=== PATIENT | female | born 2005 | race Caucasian/White ===

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

== ENCOUNTER 2024-01-09 20:23 | Outpatient (CLI) | payer MEDICAID, SELFPAY ==
[2024-01-09 20:30] VITALS: BMI 26.2
[2024-01-09 20:41] VITALS: BP 116/65; PULSE 79
[2024-01-09 20:42] VITALS: TEMP 35.5
[2024-01-09 20:57] VITALS: BP 104/56; PULSE 66
[2024-01-09 21:12] VITALS: BP 105/59; PULSE 72
[2024-01-09 21:31] VITALS: BP 105/59; PULSE 72; RESP 18
== END 2024-01-09 21:51 | disposition home or self-care (01) ==
LOC: OPOB 20:27 → OBGYN 20:28
PROVIDERS: Visit Provider Family Medicine
DX: O26.899 Other specified pregnancy related conditions, unspecified trimester (principal); Z3A.00 Weeks of gestation of pregnancy not specified; R10.9 Unspecified abdominal pain
CPT/HCPCS: 59000; 59025; 99211

== ENCOUNTER 2024-01-21 01:42 | Outpatient (CLI) | payer MEDICAID, SELFPAY ==
[2024-01-21 01:56] VITALS: BP 107/59; PULSE 80
[2024-01-21 01:58] VITALS: TEMP 35.8
[2024-01-21 02:02] VITALS: BMI 26.9
[2024-01-21 02:13] VITALS: BP 102/57; PULSE 72
[2024-01-21 02:27] VITALS: BP 99/54; PULSE 88
[2024-01-21 02:31] LABS: Actim Prom Negative
[2024-01-21 02:42] VITALS: BP 103/58; PULSE 77
== END 2024-01-21 02:58 | disposition home or self-care (01) ==
LOC: OPOB 01:43 → OBGYN 01:45
PROVIDERS: Visit Provider Family Medicine
DX: O26.899 Other specified pregnancy related conditions, unspecified trimester (principal); Z3A.00 Weeks of gestation of pregnancy not specified; N89.8 Other specified noninflammatory disorders of vagina
CPT/HCPCS: 84112

== ENCOUNTER 2024-02-18 14:12 | Inpatient (IN) | payer MEDICAID, SELFPAY ==
[2024-02-18] VITALS (75 sets, daily range): BP systolic 91–128; BP diastolic 50–77; PULSE 49–113; RESP 15–18; TEMP 36.8; O2SAT 89–99; BMI 28.1
[2024-02-18 12:40] LABS: Basophils # 0.1 10^3/uL (0.0-0.1); Basophils % 0.5 %; Eosinophils % 0.2 %; Hematocrit 32.2 % (36-47); Lymphocytes # 1.7 10^3/uL (1.5-6.5); Lymphocytes % 13.3 %; Mean Corpuscular HGB Conc 30.7 g/dL (30-55); Mean Corpuscular Hemoglobin 25.4 pg (27-33); Mean Corpuscular Volume 82.6 fl (85-98); Mean Platelet Volume 9.7 fL (7.4-10.4); Monocytes # 0.9 10^3/uL (0.2-0.9); Monocytes % 7.1 %; Neutrophils # 10.12 10^3/uL (1.8-8.0); Neutrophils % 77.5 %; Nucleated Red Blood Cells % 0 %; Platelet Count 325 10^3/cmm (157-399); Red Cell Distribution Width 14.4 % (12.1-15.1); White Blood Count 13.04 10^3/uL (4.5-13.0)
[2024-02-18] MEDS: fentaNYL 50 mcg/mL INJ 2mL IVP ×2 (14:49→16:43)
[2024-02-18] MEDS: lactated ringers 1,000 ML 999 ML IV (16:51)
[2024-02-18] MEDS: ROPivacaine syringe 100 MG/50 ML SYRINGE 10 MG EPIDURAL ×2 (18:10→22:21)
[2024-02-18] MEDS: dextrose 5%-lactated ringers 1,000 ML 125 ML IV (18:12)
--- NOTE | 2024-02-18 18:19 | P.ANESASSM_ITS ---
Pre-Anesthetic Assessment Height/Weight: Height 1.63 m Weight 74.389 kg Pulse Resp BP Pulse Ox O2 Del Method 81 17 106/58 96 Room Air 02/18/24 18:16 02/18/24 16:43 02/18/24 18:16 02/18/24 18:12 02/18/24 12:10 Epidural Familial anesthetic complications: None Was Beta Andreina taken within 24 hours: N/A Was Clonidine taken within 24 hours: N/A Last intake: > 8hrs Social No alcohol and No tobacco Exam alert, oriented x 3, clear to auscultation bilaterally and regular rate & rhythm Anesthetic Plan ASA status: 2 Anesthesia: Regional (specify below) Risk of > 500 ml blood loss (7ml/kg in children): Yes, adequate IV access and fluids planned Medications/Allergies Home Medications Medication Instructions Recorded Confirmed Last Taken Type 1 tab PO DAILY 11/28/23 02/18/24 01/20/24 History Allergies Allergy/AdvReac Type Severity Reaction Status Date / Time No Known Allergies Allergy Verified 02/18/24 11:39 Current Medications Generic Name Dose Route Start Last Admin Trade Name Freq PRN Reason Stop Dose Admin Fentanyl 25 - 100 mcg 02/18/24 12:08 02/18/24 16:43 Fentanyl 50 Mcg/Ml Inj 2ml IVP 50 mcg Q1H PRN Administration SEVERE PAIN Dextrose/Lactated Ringer's 1,000 mls @ 125 mls/hr 02/18/24 12:15 02/18/24 18:12 Dextrose 5%-Lactated Ringers IV 125 mls/hr .Q8H CURT Administration Lactated Ringer's 1,000 mls @ 999 mls/hr 02/18/24 16:46 02/18/24 16:51 Lactated Ringers IV 999 mls/hr .Q1H1M PRN Administration See label comments Ropivacaine 100 mg in 50 mls @ 10 mls/hr 02/18/24 17:00 02/18/24 18:10 Naropin Syringe EPIDURAL 10 mls/hr .Q5H CURT Administration PFSH Anesthesia Social History (Updated 03/09/21 @ 13:23 by Cha Gonzales) Smoking and tobacco/nicotine status: never used tobacco/nicotine Second hand smoke exposure: No Alcohol intake: never Substance/Drug Use: never Female Reproductive History : 1 Data Anesthesia 02/18/24 12:15 Short CBC 02/18/24 Range/Units 12:15 WBC 13.04 H (4.5-13.0) 10^3/uL Hgb 9.90 L (12.4-14.8) g/dL Hct 32.2 L (36-47) % MCV 82.6 L (85-98) fl Plt Count 325 (157-399) 10^3/cmm Neut % (Auto) 77.5 % Neut # (Auto) 10.12 H (1.8-8.0) 10^3/uL Blood Bank 02/18/24 12:15 Blood Type O Positive Rho(D) Type Rh positive Antibody Screen Negative Cardiac Studies: 2 No Data to Display
--- NOTE | 2024-02-18 18:20 | ANES.PROC ---
Anesthesia Procedures Procedure/Date: 02/18/24 Epidural: Time Out Performed: Yes Consents Signed: Procedure Consent Consent: requested by attending/covering physician, from patient, from other, risks and benefits reviewed and patient agrees to proceed Lumbar Level: L3-L4 Epidural position: sitting Epidural procedure: sterile prep of area, 1% lidocaine to numb the area, 18 g needle, negative for paresthesia passed, neg for paresthesia, test dose given, 1.5% xylocaine 1:200k epi (5), 0.2% Ropivacaine bolus ml (5), placed PCEA, no systemic response, sterile dressing applied, L.U.D. no apparent complications and 0.2% Ropiavacaine @ mls/hr (10) Additional Comments: ALANNA at 3 cm, threaded to 10 cm. Patient reported decreased pain of contraction from 10/10 to not bad at all
[2024-02-18] MEDS: lanolin oint 7 gm 1 APPLIC TOPICAL (22:23)
[2024-02-19] VITALS (24 sets, daily range): BP systolic 93–189; BP diastolic 51–133; PULSE 58–129; RESP 16–18; TEMP 36.7–37.7; O2SAT 96–98
[2024-02-19] MEDS: acetaminophen 325 mg Tablet 650 MG PO (01:02)
[2024-02-19] MEDS: oxytocin 30 UNIT/500 ML BAG 600 UNIT IV (02:05)
[2024-02-19] MEDS: miSOPROStol 200 mcg Tablet 800 MCG PR (02:10)
--- NOTE | 2024-02-19 02:40 | PM.OPHPUD ---
Labor & Delivery H&P Update Date of Procedure: February 18, 2024 Date H&P Performed: 02/13/24 Admission Diagnosis: IUP at 39 weeks 6 days gestation in active labor Planned procedure: Expectant management of labor and delivery
--- NOTE | 2024-02-19 02:41 | P.PCNOB_ITS ---
Delivery Note: Date of delivery: February 19, 2024 Estimated blood loss (mL): 350 Pre-Delivery Course: Mother had routine care at [facility]. There were no complications during the . Blood type was O+ antibody negative, hepatitis B nonreactive hepatitis C nonreactive, HIV nonreactive, rubella immune, GC chlamydia negative, RPR nonreactive, UDS negative, Q low risk, she passed her glucose tolerance test, ultrasound was positive for fluid cysts in the kidneys. She was referred to [facility] and by that time the fluid had resolved so she was cleared by [facility]. Delivery: This is a 18-year-old G1, P0 at 39 weeks 6 days gestation who presented to labor and delivery in active labor. She underwent artificial rupture of membranes with meconium stained fluid. She received an epidural for pain management. Her labor progressed well on its own and she did not require any augmentation. She pushed for about 45 minutes and had a normal spontaneous vaginal delivery of a viable female weight 3900 g, Apgars 7 and 8 over an intact perineum. The infant was suctioned at delivery and placed on the mother's chest. The cord was clamped and cut. The placenta was delivered grossly intact and normal to inspection. Despite Pitocin and fundal massage mother had some brisk vaginal bleeding. 800 mcg of Cytotec was placed rectally. Mother had a second-degree left vaginal laceration that was sutured using 3-0 chromic. Mother and were doing well after delivery. A&P Assessment and plan (1) Normal spontaneous vaginal delivery: Coding Level of Care Code Acute Code for Chg Fwd Diagnoses Normal spontaneous vaginal delivery O80
[2024-02-19] MEDS: benzocaine-menthol 78 gm Canister 1 SPRAY TOPICAL (04:51)
[2024-02-19] MEDS: ibuprofen 800 mg tablet PO ×3 (10:08→21:04)
[2024-02-19] MEDS: docusate sodium 100 mg Capsule PO ×2 (10:09→21:04)
[2024-02-19] MEDS: PRENATAL VIT NO.130/IRON/FOLIC 1 EACH TABLET PO (10:09)
[2024-02-19 14:24] LABS: Hematocrit 24.2 % (36-47); Mean Platelet Volume 9.6 fL (7.4-10.4); Platelet Count 335 10^3/cmm (157-399); Red Blood Count 2.88 10^6/uL (3.85-5.65); Red Cell Distribution Width 14.6 % (12.1-15.1); White Blood Count 20.93 10^3/uL (4.5-13.0)
[2024-02-20 06:03] VITALS: BP 108/67; PULSE 69; RESP 16; TEMP 36.8; O2SAT 98
--- NOTE | 2024-02-20 08:00 | ANE.PACU2 ---
Inpatient post-anesthesia follow up: Airway intact: Yes Vital signs: Temperature 98.0 F Pulse Rate 76 Respiratory Rate 16 Blood Pressure 121/67 Pulse Oximetry 98 Oxygen Delivery Me thod Room Air Oxygen Flow Rate Fraction of Inspir ed Oxygen Hydration adequate: Yes Nausea and vomiting: No Pain level: 1 Mental status: Baseline Epidural Start/End: Epidural Start Date: 02/18/24 Epidural Start Time: 17:57 Epidural End Date: 02/19/24 Epidural End Time: 05:27
[2024-02-20] MEDS: docusate sodium 100 mg Capsule PO (09:46)
[2024-02-20] MEDS: ibuprofen 800 mg tablet PO (09:46)
[2024-02-20] MEDS: PRENATAL VIT NO.130/IRON/FOLIC 1 EACH TABLET PO (09:46)
[2024-02-20 09:50] VITALS: BP 107/64; PULSE 89; RESP 16; TEMP 36.4
--- NOTE | 2024-02-20 11:35 | PM.DCS ---
Discharge Providers Date of Admission: 02/18/24 14:12 Date of Discharge: February 20, 2024 Attending Provider at Admission: Elise Barton MD Attending Provider at Discharge: Elise Barton MD Diagnoses at Discharge Discharge Diagnosis (1) Normal spontaneous vaginal delivery: Status: Acute Reason for Visit Reason for Visit: CTX Hospital Course Hospital Course This is a 18-year-old G1 now P1 who had a 40-week gestation female infant via normal spontaneous vaginal delivery. Mother and have done well after delivery. She is ambulating, tolerating a regular diet, has good pain control and is comfortable with discharge home Physical Exam Narrative: Alert and oriented, sitting up in bed, heart regular rate and rhythm, lungs clear to auscultation bilaterally, abdomen is soft and nontender, fundus is firm, extremities have no calf tenderness and no edema Urinary Catheter Management: Decker: Cath Placed During This Visit: yes, but has since been removed by the nurse Reason for Continuing Indwelling Catheter: Decision to DC Catheter Urinary Catheter Date of Insertion: 02/18/24 Urinary Catheter Time of Insertion: 18:45 Date Urinary Catheter Removed: 02/19/24 Time Urinary Catheter Discontinued: 01:30 Discharge Data Studies Completed and Pending Laboratory Results WBC 20.93 10^3/uL (4.5-13.0) H 02/19/24 14:15 RBC 2.88 10^6/uL (3.85-5.65) L 02/19/24 14:15 Hgb 7.50 g/dL (12.4-14.8) L 02/19/24 14:15 Hct 24.2 % (36-47) L 02/19/24 14:15 MCV 84.0 fl (85-98) L 02/19/24 14:15 MCH 26.0 pg (27-33) L 02/19/24 14:15 MCHC 31.0 g/dL (30-55) 02/19/24 14:15 RDW 14.6 % (12.1-15.1) 02/19/24 14:15 Plt Count 335 10^3/cmm (157-399) 02/19/24 14:15 MPV 9.6 fL (7.4-10.4) 02/19/24 14:15 Neut % (Auto) 77.5 % 02/18/24 12:15 Lymph % (Auto) 13.3 % 02/18/24 12:15 [place] % (Auto) 7.1 % 02/18/24 12:15 Eos % (Auto) 0.2 % 02/18/24 12:15 Baso % (Auto) 0.5 % 02/18/24 12:15 Neut # (Auto) 10.12 10^3/uL (1.8-8.0) H 02/18/24 12:15 Lymph # (Auto) 1.7 10^3/uL (1.5-6.5) 02/18/24 12:15 [place] # (Auto) 0.9 10^3/uL (0.2-0.9) 02/18/24 12:15 Eos # (Auto) 0.0 10^3/uL (0.0-0.8) 02/18/24 12:15 Baso # (Auto) 0.1 10^3/uL (0.0-0.1) 02/18/24 12:15 Nucleated RBC % (auto) 0 % 02/18/24 12:15 Nucleated RBCs # 0.0 /100WBC 02/18/24 12:15 Blood Type O Positive 02/18/24 12:15 Rho(D) Type Rh positive 02/18/24 12:15 Antibody Screen Negative 02/18/24 12:15 Vitals Last Vital Signs Temp 97.6 F 02/20/24 09:50 Pulse 89 02/20/24 09:50 Resp 16 02/20/24 09:50 BP 107/64 02/20/24 09:50 Pulse Ox 98 02/20/24 06:03 O2 Del Method Room Air 02/20/24 09:50 Discharge Plan Discharge Patient Disposition: Home Condition: Stable Prescriptions: New ferrous sulfate 324 mg (65 mg iron) tablet,delayed release (DR/EC) 324 mg PO DAILY Qty: 90 0RF Continued 1 tab PO DAILY Discharge Orders: Discharge Order (Routine); Ordered 02/20/24 Ordered By: Elise Barton Referrals: Elise Barton MD [Physician] - 1 month Discharge Diet: Usual diet Discharge Activity: Limit activity as instructed Patient Instructions: Depression (DC), Opioid Safety (DC), Preeclampsia and Eclampsia After Delivery (GEN), Hemorrhage (DC), OB Discharge Report, OB Food/Drug Interaction Guide, OB Care at Home, Opioid Safety, OB Vaginal Deliveries, Abnormal Bleeding Activity Restrictions/Additional Instructions: Nothing per vagina for 6 weeks Discharge Attestations Time Spent in Discharge Care*: less than 30 min Quality Metrics Clinical Quality Measures [ No reported AMI, CVA or VTE this stay] Coding Level of Care Code Acute Code for Chg Fwd Diagnoses Normal spontaneous vaginal delivery O80
[2024-02-20 12:15] VITALS: BP 121/67; PULSE 76; RESP 16; TEMP 36.7
== END 2024-02-20 12:25 | disposition home or self-care (01) | DRG 807 ==
LOC: OPOB 14:12 → OBGYN 14:12
PROVIDERS: Admitting Provider Family Medicine; Visit Provider Family Medicine
DX: O77.0 Labor and delivery complicated by meconium in amniotic fluid (principal); Z37.0 Single live birth; O70.1 Second degree perineal laceration during delivery; Z3A.39 39 weeks gestation of pregnancy
CPT/HCPCS: 36415; 51702; 59025; 59409; 85025; 85027; 86850; 86900; 99211; J2590; J2795; J3010; J7120; J7121

== ENCOUNTER 2025-02-24 18:01 | Emergency (ER) | payer MEDICAID, SELFPAY ==
--- OUTSIDE RECORDS SUMMARY | 2008-05-06 19:00 | XMS_ITS | Continuity of Care Document ---
Author Organization [facility] Address [id number] [address] Phone Care Team Providers [employer] Name Role Phone Unavailable Unavailable Unavailable Advance Directives Directive Yes / No Effective Date File Name No Information Encounters Encounter Description Practice Location Reason(s) For Visit Diagnoses Date Provider Providers Copied on Encounter [facility], [id number] [place], [place], [id number], [place] tel:[phone] Family Medicine F1 No Information 8 No Information Family History Family Member Type Diagnosis Age At Onset No Information Immunizations Vaccine Date Status Comments FLU VACCINE, NASAL administered Source: S ource Unspecified Payers Payer name Insurance type Covered republican ID Authoriza tion(s) No Information Social History Type Description Quantity Date Captured Comments Sex Female Smoking Status No Information Sexual Orientation Heterosexual Chief Complaint And Reason For Visit No Information Reason For Referral Reason For Referral No Information History Of Present Illness Encounter Date Complaint History Of Prese nt Illness No Information Functional Status Date Functional Assessmen t No Information Instructions Date Instruction Additional Infor mation No Information Assessments Type Assessment Date No Information Patient Care Teams Name Effective Dates (start - stop) Status Members No Information
[2025-02-24 18:06] VITALS: BP 105/60; PULSE 73; RESP 18; TEMP 36.8; O2SAT 98; BMI 22.3
--- OUTSIDE RECORDS SUMMARY | 2025-02-24 18:12 | XMS_ITS | Data Portability ---
Author Organization [facility] Ricardo Alas [facility] Address [address] [place] [address] Care Team Providers Care Librarian Special Collections Name Role Phone ELISE PORRAS Day Care Worker Unavailable Assessment No assessment recorded. Plan of Treatment Reminders Order Date Submit Date Provider Last Modified By Organization Details Last Modified Time Details Appointments ACUTE VISIT 2024 11:10A M WALK-IN Not available Not available Not available Lab None recorded. Referral None recorded. Procedures None recorded. Surgeries None recorded. Imaging None recorded. Medication Orders doxycycli ne hyclate 100 mg capsule 2024 025 [facility], [address], [place], [address], 02/24/2025 13:00:46 prednison e 10 mg tablet 2024 025 [facility], [address], [place], [address], 02/24/2025 13:00:48 Tubersol 5 tub. unit/0.1 mL intraderm al injection solution 2024 025 [email or web address] 0 Not available 11/03/2024 09:01:03 Patient TargetsNo targets recorded. Patient Instructions Encounter Date Encounter Id Patient Instructions Last Modified By Organization Details Last Modified Time 02/24/2025 [id number] Increase fluids and follow up for worsening [email or web address] Not available 02/24/2025 13:00:55 Reason for Referral None Reported. Problems Name Problem SNOMED Code Status Onset Date Resolution Date Notes Provider Name and Address Organization Details Recorded Time Fatigue 99501118 Completed 202208/18/2024 SOFIE PIERRE [facility] 5 10:01:58 Acute sinusitis 66691460 Completed 202208/18/2024 SOFIE PIERRE [facility] 5 10:01:58 Acute maxillary sinusitis 44841832 Completed 202208/18/2024 SOFIE PIERRE [facility] 5 10:01:58 [id number] Completed 202303/19/[facility] 13:07:30 Problem Notes None recorded. Procedures Surgical History Date Name Laterality Status Provider Name and Address Organization Details Recorded Time Cerumen Removal-Irri gation completed JAMAR GRIMES [address], [address], [facility] 06/30/2023 14:24:13 Imaging Results None recorded. Procedure Notes None recorded. Medical Equipment None Reported. Allergies No known drug allergies Medications Name Sig Start Date Stop Date Status Note LastModified by Organization Details LastModified Time terconazole 0.4 % vaginal cream INSERT 1 APPLICATO RFUL VAGINALLY ONCE DAILY FOR 7 DAYS 02/04 completed Not Available Not Available Not Available prednisone 10 mg tablet Take 1 tablet every day by oral route with meal(s) for 5 days. 2024 active Not Available Not Available Not Avai lable doxycycline hyclate 100 mg capsule Take 1 capsule twice a day by oral route with meal(s) for 10 days. 2024 active Not Available Not Available Not Avai lable Tubersol 5 tub. unit/0.1 mL intradermal injection solution Inject 0.5 units by intraderm al route. 2024 active Not Available Not Available Not Avai lable terconazole 0.8 % vaginal cream Insert 1 applicato rful every day by vaginal route for 7 days. 02/04 completed Not Available Not Available Not Available metronidazo le 500 mg tablet TAKE ONE TABLET BY MOUTH TWICE DAILY 08/29 completed Not Available Not Available Not Available amoxicillin 500 mg tablet Take 1 tablet every 12 hours by oral route for 10 days. 07/29 completed Not Available Not Available Not Available Macrobid 100 mg capsule Take 1 capsule every 12 hours by oral route for 7 days. 01/05 completed Not Available Not Available Not Available ondansetron 4 mg disintegrat ing tablet Dissolve one tablet in THE MOUTH EVERY EIGHT HOURS NEEDED FOR NAUSEA AND VOMITING. Dissolve ON top of THE TONGUE THEN swallow. 08/18 completed Not Available Not Available Not Available medroxyprog esterone 150 mg/mL intramuscul ar suspension INJECT 1 SYRINGE INTRAMUSC ULARLY ONCE EVERY 3 MONTHS active Not Available Not Available No t Available amoxicillin 875 mg-potassiu m clavulanate 125 mg tablet Take 1 tablet every 12 hours by oral route for 10 days. 06/28 completed Not Available Not Available Not Available Vitamin 27 mg iron-0.8 mg tablet Take 1 tablet every day by oral route for 90 days. 03/19 completed Not Available Not Available Not Available Unisom (doxylamine ) 11/25 completed Not Available Not Available Not Available vitamin B6-vitamin E-magnesium 11/25 completed Not Available Not Available Not Available ferrous sulfate 324 mg (65 mg iron) tablet,rip yed release TAKE 1 TABLET BY MOUTH ONCE DAILY 03/19 completed Not Available Not Available Not Available Vitals Date Recorded Body height Body mass index (BMI) Body mass index (BMI) [Percentile] Per age and sex Body weight Body temperature Oxygen saturation Oxygen saturation in Arterial blood by Pulse oximetry Heart rate Systolic And Diastolic Provider Name and Address Organization Details Last Updated DateTime 5 160.02 cm 24.8 kg/m2 77 % 11036.9 3 g 97.8 [degF] 97 % 97 % 87 /min 114/70 mm[Hg] SOFIE PIERRE [facility] 5 10:01:17 Date Recorded Body height Body mass index (BMI) [Percentile] Per age and sex Body mass index (BMI) Body weight Body temperature Oxygen saturation Oxygen saturation in Arterial blood by Pulse oximetry Heart rate Systolic And Diastolic Provider Name and Address Organization Details Last Updated DateTime 5 160.02 cm 74 % 24.4 kg/m2 55633.7 5 g 97.5 [degF] 98 % 98 % 74 /min 115/70 mm[Hg] ELI JOSEPHH WILLIE [facility] LShanikaL.CShanika 5 16:17:33 Date Recorded Body height Body mass index (BMI) Body mass index (BMI) [Percentile] Per age and sex Body weight Oxygen saturation Oxygen saturation in Arterial blood by Pulse oximetry Heart rate Systolic And Diastolic Provider Name and Address Organization Details Last Updated DateTime 5 160.02 cm 23 kg/m2 63 % 99424.0 1 g 99 % 99 % 78 /min 118/74 mm[Hg] Angelica Daniels [facility], LShanikaL.CShanika 5 12:20:24 Social History Question Answer Notes LastModified by [employer] Details LastModified Time Tobacco Smoking Status Never Smoker ELI TAPIA [facility] 06/28/2023 16:26:14 What Was The Date Of Your Most Recent Tobacco Screening? 02/24/2025 [email or web address] Information not available 02/24/2025 Sex: Unknown Functional Status Question Answer Note LastModified by [employer] Details LastModified Time Do you use any illicit or recreational drugs? No [email or web address] Information not available 09/27/2023 What is your level of alcohol consumption? None [email or web address] Information not available 09/27/2023 Mental Status None recorded. Family History Relationship Description Onset Age of this Age Resolved Age Notes LastModified by Organization Details LastModified Time Mother Malignant tumor of cervix [email or web address] Not available 05/2023 16:26:09 Medical History Condition Response Coronary Artery Disease N Other N Gout N Kidney Stones N Blood Diseases N Hyperthyroidism N Breast Cancer N Blood Transfusion N Hypothyroidism N Depression N COPD N Lung Disease N Defects or Inherited Disease N Developmental or Behavioral Disorders N Breast Problem N Difficulty Swallowing N Anesthesia Complications N Anxiety Disorder N Meniere's disease N Muscle, Joint, or Bone Problems N Vision or Eye Problems N Arthritis N Polyps N Infertility N Cancer N Varicosities N Stroke N Endometriosis N Bladder or Kidney Problems N High Cholesterol N Liver Disease N Headaches N Fibromyalgia N Kidney Disease N Allergies/Hayfever N Heart Problems N Ear or Hearing Problems N Hospitalizations N Thyroid Problems N GI Problems N ADD/ADHD N Skin Problems N Eating Disorder N Anemia N Constipation N Mental Illness N Ovarian Cancer N Diabetes N Bedwetting N Seizures/Epilepsy N Tuberculosis N Eczema N Diverticulitis N Abuse/Domestic Violence N Asthma N Reflux/GERD N Hepatitis N Heart Disease N Pulmonary Embolism N Chronic Ear Infections N Pre-Eclampsia N Hypertension N Chicken Pox N Autism Spectrum Disorder (ASD) N Osteoporosis N Thrombophilias N Gynecological History Statement/Question Response Date of Last Pap Smear Obstetrics History GPAL:G 1 P 1 0 0 1 Type Value Full Term 1 Living 1 Total 1 Immunizations Vaccine Type Date Status Note Provider Nam e and Address Organization Details Recorded Time meningococcal B, OMV 3 completed ELI ac [facility] 06/28/2023 16:22:15 HPV9 3 completed ELI ac [facility] L.LShanikaCShanika 06/28/2023 16:22:15 HPV9 8 completed ELI ac [facility] L.LShanikaCShanika 06/28/2023 16:22:15 IPV 5 completed ELI ac [facility] L.LShanikaCShanika 06/28/2023 16:22:16 MMR 9 completed ELI ac [facility] L.LShanikaCShanika 06/28/2023 16:22:16 MMRV 6 completed ELI ac [facility] L.LShanikaCShanika 06/28/2023 16:22:16 meningococcal conjugate quadrivalent, MenACWY-TT (MCV4) 3 completed ELI PAUL TAPIA [facility], DarianCShanika 06/28/2023 16:22:16 pneumococcal conjugate PCV 7 7 completed ELI PAUL TAPIA [facility] DarianC. 06/28/2023 16:22:16 pneumococcal conjugate PCV 7 5 completed PAUL TAPIA [facility] DarianCShanika 06/28/2023 16:22:16 pneumococcal conjugate PCV 7 5 completed ELI PAUL TAPIA [facility], JoséLShanikaCShanika 06/28/2023 16:22:16 pneumococcal conjugate PCV 7 5 completed ELI PAUL TAPIA [facility] DarianCShanika 06/28/2023 16:22:16 DTaP-IPV 9 completed ELI PAUL TAPIA [facility] DarianCShanika 06/28/2023 16:22:16 Tdap 8 completed ELI PAUL TAPIA [facility], JoséLShanikaCShanika 06/28/2023 16:22:16 varicella 9 completed ELI TAPIA [facility], JoséLShanikaCShanika 06/28/2023 16:22:16 Influenza, split virus, trivalent, preservative 3 completed ELI PAUL TAPIA [facility] DarianCShanika 06/28/2023 16:22:16 Hep B, adolescent or pediatric 5 completed ELI PAUL TAPIA [facility], JoséLShanikaCShanika 06/28/2023 16:22:16 Hep A, ped/adol, 2 dose 7 completed ELI PAUL TAPIA [facility], JoséLShanikaCShanika 06/28/2023 16:22:16 Hep A, ped/adol, 2 dose 9 completed ELI PAUL TAPIA [facility] 06/28/2023 16:22:16 Hib (PRP-OMP) 7 completed ELI PAUL TAPIA [facility] 06/28/2023 16:22:16 Hib (PRP-OMP) 5 completed ELI PAUL TAPIA [facility] 06/28/2023 16:22:16 Hib (PRP-OMP) 5 completed ELI PAUL TAPIA [facility] 06/28/2023 16:22:16 Hib (PRP-OMP) 5 completed ELI TAPIA [facility] 06/28/2023 16:22:16 meningococcal MCV4P 8 completed ELI TAPIA [facility] 06/28/2023 16:22:16 DTaP 7 completed ELI PAUL TAPIA [facility] 06/28/2023 16:22:16 DTaP 5 completed ELI TAPIA [facility] 06/28/2023 16:22:16 DTaP-Hep B-IPV 5 completed ELI TAPIA [facility] 06/28/2023 16:22:16 DTaP-Hep B-IPV 5 completed ELI TAPIA [facility] 06/28/2023 16:22:16 Influenza, split virus, quadrivalent, PF 3 completed ELI PAUL TAPIA [facility] 07/30/2023 11:07:04 Tdap 4 completed Not Available [facility] 02/24/2025 12:15:35 Past Encounters Encounter ID Performer Location Encounter Start Date Encounter Closed Date Diagnosis/Indication Diagnosis SNOMED-CT Code Diagnosis ICD10 Code Diagnosis IMO Codes Diagnosis Note [id number] Elise Porras MD [facility] ([facility]) [address] [place] [phone] 5 10/30/2022 12:26:42 12/05/2022 11:30:00 Contraception care management 556239081 Z30.9 [id number] JAYME THURSTON NP [facility] ([facility]) [address] [place] [phone] 5 12/26/2022 15:17:46 12/26/2022 17:43:38 Dysuria 90683634 R30.0 Acute urin chhaya tract infection 086842551 N39.0 Discussed to take antibiotic as prescribed until completedD iscussed UA results in clinic todayUrine culture ordered - will notify of any resultsEdu cated patient on increasing PO fluids of water, decreasing caffeine (coffee) and sugary drinks.Dis cussed importance of avoiding baths, scented soaps, douching, perfumes.M ay take OTC AZO for 1-2 days as box directs for burning sensation. Discussed if developmen t of abdominal pain, flank pain, fever, vomiting, worsening symptoms return to walk-in, PCP or ED for re-evaluat ion. Return to clinic if any changes, any worsening, any concernsPa tient verbalized understand ing of plan. [id number] Víctor Alatorre MD [facility] ([facility]) [address] [place] [address] [phone] 5 01/05/2023 16:50:02 01/11/2023 14:47:51 Fatigue 44323083 R53.83 No specific exam findings that would guide direction for evaluation . The patient does work long days and this may correlate with fatigue. However we will check labs today. Family junaid nning education 987042280 Z30.02 Patient does not need hormones checked as she is a young 17-year-ol d female. Patient was reassured. Did discuss taking vitamins if coming off Depo and trying to get . [id number] Víctor Alatorre MD [facility] ([facility]) [address] [place] [address] [id number] 5 05/10/2023 09:33:30 05/10/2023 10:27:46 Acute maxillary sinusitis 03908158 J01.00 Likely bacterial sinusitis based on exam and history. discussed supportive care including OTC meds and sinus rinses. we will start abx. [id number] Elise Porras MD [facility] ([facility]) [address] [place] [address] [phone] 5 06/28/2023 16:17:10 06/30/2023 18:38:31 test positive 524197408 Z32.01 [facility]. 06/28/23 Gestation period, 6 weeks 76143042 Z3A.01 we will need a first trimester u/s to determine accurate dating. [id number] ROBBIE CONNER [facility] ([facility]) [address] [place] [address] [phone] 5 06/30/2023 12:53:40 06/30/2023 14:28:50 Fever 197200021 R50.9 Acute supp urative otitis media without spontaneous rupture of ear drum 11650533 H66.386 [id number] Elise Porras MD [facility] ([facility]) [address] [place] [address] [phone] 5 07/18/2023 16:08:29 07/18/2023 16:44:56 [id number] Elise Porras MD [facility] ([facility]) [address] [place] [address] [phone] 5 07/30/2023 10:54:35 07/30/2023 16:58:18 Gestation period, 14 weeks 27207549 Z3A.14 Normal pre gnancy in primigravida 5319131272 27746 Z34.02 82004527 Z33.1 [id number] Elise Porras MD [facility] ([facility]) [address] [place] [address] [phone] 5 08/30/2023 10:21:13 08/30/2023 10:53:01 Gestation period, 15 weeks 4807566 Z3A.15 Normal pre gnancy in primigravida 2939858021 61302 Z34.02 [id number] Elise Porras MD [facility] ([facility]) [address] [place] [address] [phone] 5 09/27/2023 09:54:50 09/27/2023 10:59:03 Gestation period, 19 weeks 87858885 Z3A.19 veronique u/s scheduled next week Normal pre gnancy in primigravida 3256620351 02718 Z34.02 Nausea and vomiting 1693 2000 R11.2 [id number] Elise Porras MD [facility] ([facility]) [address] [place] [address] 10/04/2023 09:43:42 10/08/2023 17:45:40 [id number] Elise Porras MD [facility] ([facility]) [address] [place] [address] [id number] 5 10/29/2023 13:39:50 10/29/2023 14:17:00 Gestation period, 23 weeks 72424349 Z3A.23 Normal pre gnancy in primigravida 7293317666 72213 Z34.02 ultr asound scan abnormal 8143349683 9109 O28.3 renal pelvices, has f/u u/s on 11/15/23. [id number] Elise Porras MD [facility] ([facility]) [address] [place] [address] [phone] 5 11/05/2023 16:13:41 11/06/2023 13:47:13 [id number] Elise Porras MD [facility] ([facility]) [address] [place] [address] [phone] 5 11/26/2023 09:41:58 11/27/2023 10:20:53 [id number] Z33.1 [id number] Elise Porras MD [facility] ([facility]) [address] [place] [address] 11/26/2023 10:37:40 11/26/2023 12:06:47 Gestation period, 27 weeks 62206889 Z3A.27 Normal pre gnancy in primigravida 1424217248 99849 Z34.02 [id number] Elise Porras MD [facility] ([facility]) [address] [place] [address] 12/17/2023 11:40:52 12/17/2023 12:15:14 Gestation period, 30 weeks 41583493 Z3A.30 Normal pre gnancy in primigravida 5714224086 55085 Z34.02 Venereal d isease screening 754545330 Z11.3 ultr asound scan abnormal 3210684836 9109 O28.3 renal pelvices.s aw MFM and u/s wnl there. 12/17/23. [id number] Elise Porras MD [facility] ([facility]) [address] [place], [place] [address] 5 12/31/2023 11:41:26 12/31/2023 12:33:15 Gestation period, 32 weeks 2052621 Z3A.32 Normal pre gnancy in primigravida 3920716229 66881 Z34.02 Vaginitis 64376995 N76.0 [id number] Elise Porras MD [facility]) [address] [place] [address] [id number] 5 01/14/2024 13:54:56 01/14/2024 14:57:22 Gestation period, 34 weeks 50777395 Z3A.34 Normal pre gnancy in primigravida 8764528779 25135 Z34.02 Vaginitis 48129078 N76.0 Candidal vulvovaginitis 37999427 B37.31 [id number] Elise Porras MD [facility] ([facility]) [address] [place], [place] [address] 01/21/2024 14:13:45 01/21/2024 16:01:29 Gestation period, 35 weeks 86015100 Z3A.35 Normal pre gnancy in primigravida 0945768930 38923 Z34.03 [id number] Elise Porras MD [facility] ([facility]) [address] [place] [address] [id number] 5 01/29/2024 12:09:26 01/29/2024 13:25:28 Gestation period, 37 weeks 18328873 Z3A.37 Normal pre gnancy in primigravida 7586985849 84259 Z34.03 [id number] Elise Porras MD [facility] ([facility]) [address] [place] [address] [id number] 5 02/05/2024 12:04:18 02/05/2024 12:35:47 Gestation period, 38 weeks 49993267 Z3A.38 Normal pre gnancy in primigravida 7551506698 49477 Z34.03 [id number] Elise Porras MD [facility] ([facility]) [address] [place] [address] [id number] 5 02/12/2024 11:42:11 02/12/2024 12:13:28 Gestation period, 39 weeks 76563862 Z3A.39 Normal pre gnancy in primigravida 8253513144 51932 Z34.03 [id number] Elise Porras MD [facility] ([facility]) [address] [place] [id number] 5 03/19/2024 12:35:57 03/24/2024 20:44:33 state 40278390 Z39.2 Contracept ion care management 603544590 Z30.9 [id number] Elise Porras MD [facility] ([facility]) [address] [place] [address] [id number] 5 06/18/2024 13:05:19 06/18/2024 16:03:17 Contraception care management 780389424 Z30.9 [id number] Elise Porras MD [facility] ([facility]) [address] [place] [address] [id number] 5 08/18/2024 09:57:45 08/18/2024 15:43:35 Medication side effects present 530646591 T50.905A light bleeding with Depo. reassuranc e. expectant management . [id number] Elise Porras MD [facility] ([facility]) [address] [place] [address] [id number] 5 09/08/2024 15:07:07 09/09/2024 14:34:53 [id number] Elise Porras MD [facility] ([facility]) [address] [place] [address] [id number] 5 10/30/2024 15:50:44 10/31/2024 13:15:08 Requires Bacillus Calmette-Yonatan vaccination 643150651 Z23 [id number] pt will return Sat for TB to be read. 10/30/24 Physical examination 588 0005 Z00.00 [id number] wnl 10/30/24 [id number] ROBBIE CONNER [facility] ([facility]) [address] [place] [address] 11/01/2024 13:30:38 11/03/2024 14:53:29 [id number] FABIAN MCGUIRE APRN [facility] ([facility]) [address] [place] [address] 02/24/2025 12:13:46 02/24/2025 13:05:56 Animal bite of wrist 308159913 S60.861A W57.XXXA 5424345 Health Concerns Section Related Observation LastModified by Organization Detai ls LastModified Time None Recorded Concern Status LastModified by Organization Details LastModified Time None Recorded Advance Directives Directive None Recorded Payers Insurance Date Sequence Insurance Name Policy Number Policy Ralph Covered Member ID Ralph Member ID Guarantor Name 02/24/2025 [facility] (MEDICAID HMO) Mc Lilly [id number] Mc Lilly 02/24/2025 2 [facility] Mc Lilly [id number] Mc Lilly 07/05/2023 1 *SELF PAY* Eli Lilly 02/24/2025 [place] Mc Lilly [id number] Mc Lilly 02/24/2025 [place] [facility] Mc Lilly [id number] Mc Lilly 02/24/[address] [facility] CHRISTINA Lilly [id number] Mc Lilly 02/24/[address] [facility] CHRISTINA Lilly [id number] Mc Lilly 02/24/2025 1 [facility] (MEDICAID HMO) Mc Lilly [id number] Mc Lilly Notes Date Note Type Note Provider Name and Address Organization Details Recorded Time 08/18/2024 text/html Abnormal BleedingReported by PatientHPIFor onset/timing, patient reportspresent cycle. For associated symptoms, patient reportsno pelvic pain,no abdominal pain, andno fatigue. pt states it is NOT heavyshe changes a liner every few hours but it is not saturated. Elise Porras MD [address] [place] [address], [phone], [facility] 08/18/2024 10:29:22 10/30/2024 text/html ROS as noted in the HPI no problems or concerns Elise Porras MD [address] [place] [address], [phone], [facility] 10/30/2024 16:47:19 02/24/2025 text/html walk inx4 days bite to right wrist, swelling, redness, drained, painful, itching FABIAN MCGUIRE APRN [address] [place] [address], [phone], [facility] 02/24/2025 13:01:10 OBGyn Episode Ob Episode Information Episode Created Date Number of Fetuses Patient Bloodtype Patient rh Status Prepregnancy Weight lbs Domestic Partner Domestic Partner Phone Father Name Spool Fixer Status 06/28/19 24 1 O Positive Collins Fitzsim mons CLOSED Fetus Data First Name Last Name Admitted to NICU Weight (g) Sex Living Outcome Pediatric Complications Fetus ID Race Codes Race Delivery Type false 3912.23 1 F true Full Term 3643 VAGINAL Rhina Calculation Initial Rhina Date Initial Exam Date Initial Exam Provider Initial Ultrasound Date Last Menstrual Period Date Ultra Sound Weeks Gestation 02/19/2024 06/28/2023 06/25/2023 04/18/2023 5 Eighteen To Twenty Week Rhina Update Ultra Sound Date Fundal Height At Umbil Quickening Date Ultra Sound Latest Weeks Gestation Final Rhina Confirmed By Final Rhina Confirmed Date Final Rhina Date Ultra Sound Latest Days Gestation 07/18/19 24 9 [email or web address] 07/30/2023 02/19/20 24 1 Pre- Flowsheet Flowsheet Date 06/28/2023 Cornell Score Blood Edema Fundus Height Fundus Units Glucose Ketones Leukocytes Nitrite Labor Signs Protein Cervic Dilation Cervic Effacement Cervic Station Type Weight in lbs Pre/Post Dialysis Refused Weight 125.438247378754 BP Diastolic BP Location Tested BP Systolic BP Type 58 100 Fetus Heart Rate Present Fetus Movement Comments RHINA likely 02/19/24 by [email or web address] u /s at [facility]. Flowsheet Date 06/30/2023 Cornell Score Blood Edema Fundus Height Fundus Units Glucose Ketones Leukocytes Nitrite Labor Signs Protein Cervic Dilation Cervic Effacement Cervic Station Type Weight in lbs Pre/Post Dialysis Refused With clothes 130.446684083218 BP Diastolic BP Location Tested BP Systolic BP Type 60 R arm 105 sitting Fetus Heart Rate Present Fetus Movement Comments Flowsheet Date 07/18/2023 Cornell Score Blood Edema Fundus Height Fundus Units Glucose Ketones Leukocytes Nitrite Labor Signs Protein Cervic Dilation Cervic Effacement Cervic Station Type Weight in lbs Pre/Post Dialysis Refused BP Diastolic BP Location Tested BP Systolic BP Type Fetus Heart Rate Present Fetus Movement Comments Flowsheet Date 07/30/2023 Cornell Score Blood Edema Fundus Height Fundus Units Glucose Ketones Leukocytes Nitrite Labor Signs Protein Cervic Dilation Cervic Effacement Cervic Station Type Weight in lbs Pre/Post Dialysis Refused Weight 126.734196166671 BP Diastolic BP Location Tested BP Systolic BP Type 60 114 Fetus Heart Rate Present A 165 Fetus Movement Comments Flowsheet Date 08/30/2023 Cornell Score Blood Edema Fundus Height Fundus Units Glucose Ketones Leukocytes Nitrite Labor Signs Protein Cervic Dilation Cervic Effacement Cervic Station 15 none trace Negative neg Type Weight in lbs Pre/Post Dialysis Refused With clothes 131.231805819365 BP Diastolic BP Location Tested BP Systolic BP Type 72 L arm 118 sitting Fetus Heart Rate Present A 150 Fetus Movement Comments Baby girl Darlyn Doll, no bi rth control after baby is born, for peds Flowsheet Date 09/27/2023 Cornell Score Blood Edema Fundus Height Fundus Units Glucose Ketones Leukocytes Nitrite Labor Signs Protein Cervic Dilation Cervic Effacement Cervic Station none trace Negative neg Type Weight in lbs Pre/Post Dialysis Refused With clothes 137.071542666490 BP Diastolic BP Location Tested BP Systolic BP Type 70 R arm 102 sitting Fetus Heart Rate Present Fetus Movement Comments Flowsheet Date 10/04/2023 Cornell Score Blood Edema Fundus Height Fundus Units Glucose Ketones Leukocytes Nitrite Labor Signs Protein Cervic Dilation Cervic Effacement Cervic Station Type Weight in lbs Pre/Post Dialysis Refused BP Diastolic BP Location Tested BP Systolic BP Type Fetus Heart Rate Present Fetus Movement Comments Flowsheet Date 10/29/2023 Cornell Score Blood Edema Fundus Height Fundus Units Glucose Ketones Leukocytes Nitrite Labor Signs Protein Cervic Dilation Cervic Effacement Cervic Station 23 none trace Negative neg Type Weight in lbs Pre/Post Dialysis Refused With clothes 144.311903545601 BP Diastolic BP Location Tested BP Systolic BP Type 74 L arm 112 sitting Fetus Heart Rate Present A 130 Fetus Movement Comments gtt next Flowsheet Date 11/05/2023 Cornell Score Blood Edema Fundus Height Fundus Units Glucose Ketones Leukocytes Nitrite Labor Signs Protein Cervic Dilation Cervic Effacement Cervic Station Type Weight in lbs Pre/Post Dialysis Refused BP Diastolic BP Location Tested BP Systolic BP Type Fetus Heart Rate Present Fetus Movement Comments Flowsheet Date 11/26/2023 Cornell Score Blood Edema Fundus Height Fundus Units Glucose Ketones Leukocytes Nitrite Labor Signs Protein Cervic Dilation Cervic Effacement Cervic Station Type Weight in lbs Pre/Post Dialysis Refused BP Diastolic BP Location Tested BP Systolic BP Type Fetus Heart Rate Present Fetus Movement Comments Flowsheet Date 11/26/2023 Cornell Score Blood Edema Fundus Height Fundus Units Glucose Ketones Leukocytes Nitrite Labor Signs Protein Cervic Dilation Cervic Effacement Cervic Station 28 none 1+ trace Type Weight in lbs Pre/Post Dialysis Refused Weight 149.260935690665 BP Diastolic BP Location Tested BP Systolic BP Type 65 100 Fetus Heart Rate Present A 140 Fetus Movement Comments kick counts handout reviewed , pt doing gtt today Flowsheet Date 12/17/2023 Cornell Score Blood Edema Fundus Height Fundus Units Glucose Ketones Leukocytes Nitrite Labor Signs Protein Cervic Dilation Cervic Effacement Cervic Station 32 none trace Negative trace Type Weight in lbs Pre/Post Dialysis Refused With clothes 149.685633870001 BP Diastolic BP Location Tested BP Systolic BP Type 70 L arm 114 sitting Fetus Heart Rate Present A 125 Fetus Movement Comments 100/10.9. epidural consult. baby meds. Routine repeat ct/ng today. Pt was seen by MFM told everything looked good. Flowsheet Date 12/31/2023 Cornell Score Blood Edema Fundus Height Fundus Units Glucose Ketones Leukocytes Nitrite Labor Signs Protein Cervic Dilation Cervic Effacement Cervic Station none trace Negative Type Weight in lbs Pre/Post Dialysis Refused With clothes 151.797564537962 BP Diastolic BP Location Tested BP Systolic BP Type 74 R arm 110 sitting Fetus Heart Rate Present Fetus Movement Comments Pt feels like she has a yeas t infection, vaginal itching, burning, and discharge already tried OTC monistat 7 day Flowsheet Date 01/14/2024 Cornell Score Blood Edema Fundus Height Fundus Units Glucose Ketones Leukocytes Nitrite Labor Signs Protein Cervic Dilation Cervic Effacement Cervic Station none trace Negative neg Type Weight in lbs Pre/Post Dialysis Refused With clothes 152.474571637202 BP Diastolic BP Location Tested BP Systolic BP Type 72 R arm 120 sitting Fetus Heart Rate Present Fetus Movement Comments Flowsheet Date 01/21/2024 Cornell Score Blood Edema Fundus Height Fundus Units Glucose Ketones Leukocytes Nitrite Labor Signs Protein Cervic Dilation Cervic Effacement Cervic Station 37 cm none 1+ Negative neg Type Weight in lbs Pre/Post Dialysis Refused With clothes 154.87867497250 BP Diastolic BP Location Tested BP Systolic BP Type 74 R arm 124 sitting Fetus Heart Rate Present A 150 Fetus Movement A Yes Comments GBS done Flowsheet Date 01/29/2024 Cornell Score Blood Edema Fundus Height Fundus Units Glucose Ketones Leukocytes Nitrite Labor Signs Protein Cervic Dilation Cervic Effacement Cervic Station trace 38 cm trace trace Negative neg 1cm 50% -2 Type Weight in lbs Pre/Post Dialysis Refused With clothes 155.59247893361 BP Diastolic BP Location Tested BP Systolic BP Type 70 L arm 114 sitting Fetus Heart Rate Present A 120 Fetus Movement A Yes Comments GBS neg Flowsheet Date 02/05/2024 Cornell Score Blood Edema Fundus Height Fundus Units Glucose Ketones Leukocytes Nitrite Labor Signs Protein Cervic Dilation Cervic Effacement Cervic Station 39 cm none 2+ 1+ Type Weight in lbs Pre/Post Dialysis Refused Weight 158.866290686510 BP Diastolic BP Location Tested BP Systolic BP Type 63 100 Fetus Heart Rate Present A 130 Fetus Movement A Yes Comments Flowsheet Date 02/12/2024 Cornell Score Blood Edema Fundus Height Fundus Units Glucose Ketones Leukocytes Nitrite Labor Signs Protein Cervic Dilation Cervic Effacement Cervic Station 40 cm none 2+ trace 1cm 50% -4 Type Weight in lbs Pre/Post Dialysis Refused 158.892026084470 BP Diastolic BP Location Tested BP Systolic BP Type 70 108 Fetus Heart Rate Present A 145 Fetus Movement A Yes Comments Flowsheet Date 03/19/2024 Cornell Score Blood Edema Fundus Height Fundus Units Glucose Ketones Leukocytes Nitrite Labor Signs Protein Cervic Dilation Cervic Effacement Cervic Station Type Weight in lbs Pre/Post Dialysis Refused Weight 137.399083381523 BP Diastolic BP Location Tested BP Systolic BP Type 62 103 Fetus Heart Rate Present Fetus Movement Comments Menstrual History Last Menstrual Date Menses Monthly On Bcp Conception Prior Menses Frequency Hcg Plus Date Menarche Onset Age 1104/18/2023 false Genetic Screening And Infection History Question Response Note Patient's Age Will Be 35 Years Or Older At Estim ated Date of Delivery false Thalassemia (Greek, Japanese, Mediterranean, Or Background): MCV < 80 false Neural Tube Defect (Meningomyelocele, Spina Bifi da, Or Anencephaly) false Congenital Heart Defect false Down Syndrome false Luis Fernando-Sachs (eg, Alevism, Cajun, Mongolian-Turner) f alse Petty Disease false Sickle Cell Disease Or Trait () false Hemophilia Or Other Blood Disorders false Muscular Dystrophy false Cystic Fibrosis false [place]'s Chorea false Intellectual Disability/Autism false If Yes, Was Person Tested For Fragile X? false Other Inherited Genetic Or Chromosomal Disorder false Maternal Metabolic Disorder (eg, Type 1 Diabetes , PKU) false Patient Or Baby's Father Had A Child With Defects Not Listed Above false Recurrent Loss, Or A Stillbirth false Medications (including Suppl ements, Vitamins, Herbs, OTC Drugs), Illicit/Recreational Drugs, Alcohol false If Yes, Agent(s) And Strength/Dosage false Any Other Genetic History false Live With Someone With TB Or Exposed To TB false Patient Or Partner Has History Of Genital Herpes false Rash Or Viral Illness Since Last Menstrual Perio d false History Of STD, Gonorrhea, Chlamydia, HPV, Syphi lis false Other Infection History false History of HIV false History of Hepatitis false Prior GBS-infected child false Hemoglobinopathy Or Carrier false Other Structural Defect false Recent Travel History Outside of Country false Mental Retardation/Autism false Delivery Information Delivery Date Delivery Type Labor Anesthesia Weeks Gestation Incision Type Labor Labor Length Hrs Delivered By Post Complications Tubal Sterilization Discharge Date Comments 4 Induce d 40 false None false Discharge Information Feeding Method Contraceptive Method Maternal HG B and HCT Levels
--- OUTSIDE RECORDS SUMMARY | 2025-02-24 18:12 | XMS_ITS | Clinical Summary ---
Author Organization [facility] Address [address] [place] [id number] Care Team Providers Care Pipe Tester Name Role Phone Unavailable Primary Care Provider Unavailabl e Social History Tobacco Use Types Packs/Day Years Used Date Smoking Tobacco: Never Assessed Comments Unknown Sex and Gender Information Value Date Recorded Sex Assigned at Not on file Legal Sex Female 12:17 PM CDT Gender Identity Not on file Sexual Orientation Not on file Plan of Treatment Health Maintenance Due Date Last Done Comments HIV Screening 2004 Hepatitis C Screening ages 18 to 79 once 2004 MMR VACCINES (1 of 1 - Standard series) 2005 YEARLY WELLNESS EXAM 09/22/2007 DEPRESSION SCREENING 2016 Meningococcal B Vaccine (2 of 2 - Bexsero SCDM 2-dose series) 02/28/2023 08/29/2022 HEPATITIS B VACCINES (1 of 3 - 19+ 3-dose series) 09/22/2023 Influenza Vaccine 12/26/2024 04/17/2023, 08/03/2022 COVID-19 Immunization ( - season) 2025 ADULT TETANUS 12/12/2027 12/11/2017 DTaP/Tdap/Td Vaccines (7 - Td or Tdap) 12/12/2027 12/11/2017, 10/23/2008, 07/06/2006, Additional history exists Zoster Vaccine (Recombinant Vaccine) (1 of 2) 2054 Pneumococcal Vaccine: Peds to 50 & At-Risk Patients Aged Out 09/05/2006, 05/11/2005, 03/09/2005, Additional history exists No longer eligible based on patient's age to complete this topic Varicella Vaccine Completed 10/23/2008, 10/25/2005 HPV VACCINES Completed 08/29/2022, 12/11/2017 HEPATITIS A VACCINES Aged Out No long er eligible based on patient's age to complete this topic HIB VACCINES Aged Out No longer eligi ble based on patient's age to complete this topic IPV VACCINES Aged Out No longer eligi ble based on patient's age to complete this topic MENINGOCOCCAL VACCINE Aged Out No sanam milvia eligible based on patient's age to complete this topic ROTAVIRUS VACCINES Aged Out No longer eligible based on patient's age to complete this topic
--- OUTSIDE RECORDS SUMMARY | 2025-02-24 18:12 | XMS_ITS | Clinical Summary ---
Author Organization [facility] Address [address] [place]: Epic Prelude ADT [place] [address] Care Team Providers Care Ceramics Machine Operator Name Role Phone Unavailable Primary Care Provider Unavailabl e Allergies No known active allergies Medications No known medications Active Problems Problem Noted Date Diagnosed Date Asymptomatic bacteriuria 06/17/2024 Nausea without vomiting 06/17/2024 Dizzy spells 06/17/2024 Headache 02/08/2019 Change in behavior 02/08/2019 Social History Tobacco Use Types Packs/Day Years Used Date Smoking Tobacco: Never Smokeless Tobacco: Never Tobacco Cessation:Counseling Given: Not Answered Feeling Safe Answer Date Recorded Are you in a relationship wi th someone who hurts you emotionally and/or physically? No 06/17/2024 Comments No Sex and Gender Information Value Date Recorded Sex Assigned at Not on file Legal Sex Female 9:41 PM WAREHOUSE OPERATIONS ASSOCIATE Gender Identity Not on file Sexual Orientation Not on file Last Filed Vital Signs Vital Sign Reading Time Taken Comments Blood Pressure 100/68 06/17/2024 1:30 PM WAREHOUSE OPERATIONS ASSOCIATE Pulse 78 06/17/2024 1:30 PM WAREHOUSE OPERATIONS ASSOCIATE Temperature 36.8 C (98.2 F) 06/17/2024 12:31 PM WAREHOUSE OPERATIONS ASSOCIATE Respiratory Rate 14 06/17/2024 1:30 PM WAREHOUSE OPERATIONS ASSOCIATE Oxygen Saturation 99% 06/17/2024 1:30 PM WAREHOUSE OPERATIONS ASSOCIATE Inhaled Oxygen Concentration - - Weight 61.7 kg (136 lb) 06/17/2024 12:31 PM WAREHOUSE OPERATIONS ASSOCIATE Height 162.6 cm (5' 4 ) 06/17/2024 12:31 PM WAREHOUSE OPERATIONS ASSOCIATE Body Mass Index 23.34 06/17/2024 12:31 PM WAREHOUSE OPERATIONS ASSOCIATE Plan of Treatment Health Maintenance Due Date Last Done Comments CHLAMYDIA SCREENING (ANNUAL) 11-24 YEARS 09/22/2015 HPV VACCINES (1 - 3-dose series) 09/22/2019 DTAP/TDAP/TD VACCINES (1 - Tdap) 09/22/2023 HEPATITIS B VACCINES (1 of 3 - 19+ 3-dose series) 08/27 INFLUENZA VACCINE (#1) 2024 Insurance [facility] [id number] [facility]
--- OUTSIDE RECORDS SUMMARY | 2025-02-24 18:12 | XMS_ITS | Continuity of Care Document ---
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 Plan of Treatment Reminders Order Date Submit Date Provider Last Modified By Organization Details Last Modified Time Details Appointments ACUTE VISIT 2024 11:10A M WALK-IN Not available Not available Not available Lab None recorded. Referral None recorded. Procedures None recorded. Surgeries None recorded. Imaging None recorded. Medication Orders doxycycli ne hyclate 100 mg capsule 2024 025 [facility], [address], [place], [address], 02/24/2025 13:00:46 prednison e 10 mg tablet 2024 025 [facility], [address], [place], [address], 02/24/2025 13:00:48 Patient TargetsNo targets recorded. Patient Instructions Encounter Date Encounter Id Patient Instructions Last Modified By Organization Details Last Modified Time 02/24/2025 [id number] Increase fluids and follow up for worsening [email or web address] Not available 02/24/2025 13:00:55 Reason for Referral None Reported. Problems Name Problem SNOMED Code Status Onset Date Resolution Date Notes Provider Name and Address Organization Details Recorded Time Fatigue 75196619 [facility]2208[facility] 10:01:58 Acute sinusitis 01674835 Completed 202208/18/2024 SOFIE PIERRE [facility], Yas 5 10:01:58 Acute maxillary sinusitis 63327121 Completed 202208/18/2024 SOFIE PIERRE [facility], Yas 5 10:01:58 [id number] Completed 202303/19/2024 FELICE PAUL TAPIA [facility], Yas 13:07:30 Problem Notes None recorded. Procedures Surgical History Date Name Laterality Status Provider Name and Address Organization Details Recorded Time Cerumen Removal-Irri gation completed JAMAR GRIMES, [address], [address], [facility], Yas 06/30/2023 14:24:13 Imaging Results None recorded. Procedure [...] 5 160.02 cm 23 kg/m2 63 % 68960.0 1 g 99 % 99 % 78 /min 118/74 mm[Hg] Angelica Daniels [facility] L.L.CShanika 5 12:20:24 Social History Question Answer Notes LastModified by Organizat ion Details LastModified Time Tobacco Smoking Status Never Smoker FELICE ac [facility], L.L.CShanika 06/28/2023 16:26:14 What Was The Date Of Your Most Recent Tobacco Screening? 02/24/2025 [email or web address] Information not available 02/24/2025 Sex: Unknown Functional Status Question Answer Note LastModified by Organizat ion Details LastModified Time Do you use any illicit or recreational drugs? No Information not available 09/27/2023 What is your level of alcohol consumption? None Information not available 09/27/2023 Mental Status None recorded. Family History Relationship Description Onset Age of this Age Resolved Age Notes LastModified by Organization Details LastModified Time Mother Malignant tumor of cervix [email or web address] Not available 05/2023 16:26:09 Medical History Condition [...] Immunizations Vaccine Type Date Status Note Provider Shine [place] and Address Organization Details Recorded Time meningococcal B, OMV 3 [facility] 06/28/2023 16:22:15 HPV9 3 completed FELICE ac [facility], LJuan Carlos 06/28/2023 16:22:15 HPV9 8 completed FELICE TAPIA [facility], Yas 06/28/2023 16:22:15 IPV 5 completed FELICE TAPIA [facility], DarianCShanika 06/28/2023 16:22:16 MMR 9 completed FELICE TAPIA [facility], DarianChSanika 06/28/2023 16:22:16 MMRV 6 completed FELICE TAPIA [facility], Yas 06/28/2023 16:22:16 meningococcal conjugate quadrivalent, MenACWY-TT (MCV4) 3 completed FELICE TAPIA [facility], DarianCShanika 06/28/2023 16:22:16 pneumococcal conjugate PCV 7 7 completed FELICE TAPIA [facility], DarianCShanika 06/28/2023 16:22:16 pneumococcal conjugate PCV 7 5 completed FELICE TAPIA [facility], DarianCShanika 06/28/2023 16:22:16 pneumococcal conjugate PCV 7 5 completed FELICE TAPIA [facility], DarianCShanika 06/28/2023 16:22:16 pneumococcal conjugate PCV 7 5 completed FELICE TAPIA [facility], DarianCShanika 06/28/2023 16:22:16 DTaP-IPV 9 completed FELICE TAPIA [facility], DarianCShanika 06/28/2023 16:22:16 Tdap 8 completed FELICE TAPIA [facility], DarianCShanika 06/28/2023 16:22:16 varicella 9 completed FELICE TAPIA [facility], L.L.C. 06/28/2023 16:22:16 Influenza, split virus, trivalent, preservative 3 completed FELICE PAUL TAPIA [facility], [facility], L[facility] 06/28/2023 16:22:16 Hep B, adolescent or pediatric 5 completed FELICE PAUL TAPIA [facility], L.L.CShanika 06/28/2023 16:22:16 Hep A, ped/adol, 2 dose 7 completed PAUL TAPIA [facility], L.L.CShanika 06/28/2023 16:22:16 Hep A, ped/adol, 2 dose 9 completed FELICE PAUL TAPIA [facility], L.L.CShanika 06/28/2023 16:22:16 Hib (PRP-OMP) 7 completed FELICE PAUL TAPIA [facility] L[facility] 06/28/2023 16:22:16 Hib (PRP-OMP) 5 completed FELICE PAUL TAPIA [facility], L[facility] 06/28/2023 16:22:16 Hib (PRP-OMP) 5 completed FELICE TAPIA [facility] 06/28/2023 16:22:16 Hib (PRP-OMP) 5 completed FELICE PAUL TAPIA [facility], L.L.CShanika 06/28/2023 16:22:16 meningococcal MCV4P 8 completed FELICE PAUL TAPIA [facility] 06/28/2023 16:22:16 DTaP 7 completed FELICE PAUL TAPIA [facility], L.L.CShanika 06/28/2023 16:22:16 DTaP 5 completed FELICE PAUL TAPIA [facility], Lauri.LShanikaC. 06/28/2023 16:22:16 DTaP-Hep B-IPV 5 completed FELICE TAPIA osorio, [facility], LShanikaLShanikaC. 06/28/2023 16:22:16 DTaP-Hep B-IPV 5 completed FELICE TAPIA osorio, [facility], LShanikaLShanikaCShanika 06/28/2023 16:22:16 Influenza, split virus, quadrivalent, PF 3 completed FELICE TAPIA osorio, [facility], LShanikaLShanikaCShanika 07/30/2023 11:07:04 Tdap 4 completed Not Available [facility]/24[facility] 12:15:35 Past Encounters Encounter ID Performer Location Encounter Start Date Encounter Closed Date Diagnosis/Indication Diagnosis SNOMED-CT Code Diagnosis ICD10 Code Diagnosis IMO Codes Diagnosis Note [id number] FABIAN MCGUIRE APRN [facility] ([facility]) [address] [place] [address] 02/24/2025 12:13:46 02/24/2025 13:05:56 Animal bite of wrist [id number] S60.861A W57.XXXA [id number] Health Concerns Section Related Observation LastModified by Organization Detai ls LastModified Time None Recorded Concern Status LastModified by Organization Details LastModified Time None Recorded Payers Encounter Date Sequence Insurance Name Policy Number Policy Ralph Covered Member ID Ralph Member ID Guarantor Name 02/24/2025 1 [facility] (MEDICAID REPLACEMENT - HMO) CHRISTINA Lilly [id number] Mc Lilly Notes Date Note Type Note Provider Name and Address Organization Details Recorded Time 02/24/2025 text/html walk inx4 days bite to right wrist, swelling, redness, drained, painful, itching FABIAN MCGUIRE APRN [address] [place] [address], [phone], [facility] L[facility] 02/24/2025 13:01:10 OBGyn Episode No OBEpisode recorded.
--- NOTE | 2025-02-24 18:33 | ED_ITS ---
HPI - Skin/Abscess/Foreign Bdy General: Chief complaint: Skin/Abscess/Foreign Body Stated complaint: Possible Spider bite on RT wrist Time Seen by Provider: 02/24/25 18:30 History of Present Illness: 19-year-old female who presents emergenc y room with pain on her right wrist. She has redness and swelling there. Been there for 3 days. She went to urgent care today and they started her on some antibiotics. She says the pain and redness have been worse. There is some induration but no fluctuance. There is a black central eschar that is very small. Related Data Home Medications ?Medication ?Instructions ?Recorded ?Confirmed 1 tab PO DAILY 11/28/2301/27 Previous Rx's ?Medication ?Instructions ?Recorded ferrous sulfate 324 mg (65 mg 324 mg PO DAILY #90 tabs 02/20/24 iron) tablet,delayed release tramadol 50 mg tablet 50 mg PO Q8H PRN pain #10 ta bs 02/24/25 Allergies Allergy/AdvReac Type Severity Reaction Status Date / Time No Known Allergies Allergy Verified 02/18/24 11:39 Review of Systems Narrative: Constitutional symptoms: Negative except as documented in HPI. Skin symptoms: Negative except as documented in HPI. Eye symptoms: Negative except as documented in HPI. ENMT symptoms: Negative except as documented in HPI. Respiratory symptoms: Negative except as documented in HPI. Cardiovascular symptoms: Negative except as documented in HPI. Gastrointestinal symptoms: Negative except as documented in HPI. Genitourinary symptoms: Negative except as documented in HPI. Musculoskeletal symptoms: Negative except as documented in HPI. Neurologic symptoms: Negative except as documented in HPI. Psychiatric symptoms: Negative except as documented in HPI. Endocrine symptoms: Negative except as documented in HPI. PFSH ED PFSH: Social History (Updated 03/09/21 @ 13:23 by Cha Gonzales) Smoking and tobacco/nicotine status: never used tobacco/nicotine Second hand smoke exposure: No Alcohol intake: never Substance/Drug Use: never Physical Exam Narrative: EXAM NARRATIVE: General: Alert, no acute distress. Skin: warm and dry. 4 cm round lesion on the palmar wrist. There is some induration but no fluctuance. There is a black central eschar that is very small. Head: Normocephalic Neck: Trachea midline Eye: Extraocular movements are intact. Ears, nose, mouth and throat: Oral mucosa moist Respiratory: Respirations are non-labored Musculoskeletal: Normal ROM Gastrointestinal: Abdomen does not appear distended Neurological: Alert and oriented, No focal neurological deficit observed. Psychiatric: Cooperative, appropriate mood & affect. Course Vital Signs: Vital signs: Vital Signs Temperature 98.3 F 02/24/25 18:06 Pulse Rate 73 02/24/25 18:06 Respiratory Rate 18 02/24/25 18:06 Blood Pressure 105/60 02/24/25 18:06 Pulse Oximetry 98 02/24/25 18:06 Oxygen Delivery Me thod Room Air 02/24/25 18:06 MDM - Skin/Abscess/Foreign Bdy Medicial Decision Making Medical decision making: Differential diagnosis including but not limited to and based on the above HPI, review of systems and physical exam: Patient has fairly apparent cellulitis. Pain is worse and she says redness is a little worse than it was earlier. Seems fairly self-explanatory and does not require I&D at this point. I will give her some IM Toradol and an IM dose of clindamycin Assessment and plan: Cellulitis ?IM clinda and Toradol - Discharged home - Discussed plan with patient. Answered any questions. - Evaluation and treatment of this problem were appropriate in the emergency setting. No radiology studies performed this visit Discharge Plan Discharge Patient Disposition: Home Clinical Impression: Cellulitis Condition: Stable Prescriptions: New tramadol 50 mg tablet 50 mg PO Q8H PRN (Reason: pain) Qty: 10 0RF No Action ferrous sulfate 324 mg (65 mg iron) tablet,delayed release (DR/EC) 324 mg PO DAILY Qty: 90 0RF 1 tab PO DAILY Discharge Orders: Discharge ED (Routine); Ordered 02/24/25 Ordered By: Cindy Aguilera Discharge Activity: Increase activity as tolerated Patient Instructions: Cellulitis (ED), Opioid Safety, Pain Management, Patient Portal & Hay Instructions Activity Restrictions/Additional Instructions: Thank you for choosing [facility] for your healthcare needs today. You have been screened and evaluated and felt safe for discharge. Health conditions do change or evolve sometimes and as such it is important that you follow up with your Primary Doctor to be re checked, 3-5 days is a general good time frame for follow up. You are always welcome to return to the ED for re assessment if your symptoms are worsening or you have new concerns Print Language: Citizen Of [place] Coding Level of Care Code ED Rollout Manager for Elvia Pineda
[2025-02-24] MEDS: Clindamycin 150 MG/ML SDV 2mL 600 MG IM (18:43)
== END 2025-02-24 19:00 | disposition home or self-care (01) ==
PROVIDERS: Emergency Provider Emergency Medicine
DX: L03.113 Cellulitis of right upper limb (principal)
CPT/HCPCS: 96372; 99284; J0736; J1885

== ENCOUNTER 2025-04-03 08:16 | Emergency (ER) | payer MEDICAID, SELFPAY ==
[2025-04-03 08:24] VITALS: BP 130/72; PULSE 97; RESP 16; TEMP 37.1; O2SAT 98; BMI 23.5
--- OUTSIDE RECORDS SUMMARY | 2025-04-03 08:34 | XMS_ITS | Clinical Summary ---
Author Organization [employer] Address [address] [place]: Epic Prelude ADT [place] [id number] Care Team Providers Care Marine Machinist Name Role Phone Unavailable Primary Care Provider [...] on file Legal Sex Female 9:41 PM NEWS PRODUCTION ASSISTANT Gender Identity Not on file Sexual Orientation Not on file Last Filed Vital Signs Vital Sign Reading Time Taken Comments Blood Pressure 100/68 06/17/2024 1:30 PM NEWS PRODUCTION ASSISTANT Pulse 78 06/17/2024 1:30 PM NEWS PRODUCTION ASSISTANT Temperature 36.8 C (98.2 F) 06/17/2024 12:31 PM NEWS PRODUCTION ASSISTANT Respiratory Rate 14 06/17/2024 1:30 PM NEWS PRODUCTION ASSISTANT Oxygen Saturation 99% 06/17/2024 1:30 PM NEWS PRODUCTION ASSISTANT Inhaled Oxygen Concentration - - Weight 61.7 kg (136 lb) 06/17/2024 12:31 PM NEWS PRODUCTION ASSISTANT Height 162.6 cm (5' 4 ) 06/17/2024 12:31 PM NEWS PRODUCTION ASSISTANT Body Mass Index 23.34 06/17/2024 12:31 PM NEWS PRODUCTION ASSISTANT Plan of Treatment Health Maintenance Due Date Last Done Comments CHLAMYDIA SCREENING (ANNUAL) 11-24 YEARS 09/22/2015 HPV VACCINES (1 - 3-dose series) 09/22/2019 DTAP/TDAP/TD VACCINES (1 - Tdap) 09/22/2023 HEPATITIS B VACCINES (1 of 3 - 19+ 3-dose series) 08/27 INFLUENZA VACCINE (#1) 2024 Insurance [facility] [id number] [facility]
--- OUTSIDE RECORDS SUMMARY | 2025-04-03 08:34 | XMS_ITS | Clinical Summary ---
Author Organization [facility] Address [address] [place] [id number] Care Team Providers Care Evp Marketing Name Role Phone Unavailable Primary Care Provider [...]
--- OUTSIDE RECORDS SUMMARY | 2025-04-03 08:34 | XMS_ITS | Data Portability ---
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 Plan of Treatment Reminders Order Date Submit Date Provider Last Modified By Organization Details Last Modified Time Details Appointments None recorded. Lab None recorded. Referral None recorded. Procedures None recorded. Surgeries None recorded. Imaging None recorded. Medication Orders doxycycline hyclate 100 mg capsule 2024 025 [facility], [address], [place], [address], 05:01:16 prednisone 10 mg tablet 2024 025 [facility], [address], [place], [address], 05:01:27 Tubersol 5 tub. unit/0.1 mL intradermal injection solution 2024 025 [email or web address] Not available 09:01:03 Patient TargetsNo targets recorded. Patient Instructions Encounter Date Encounter Id Patient Instructions Last Modified By Organization Details Last Modified Time 02/24/2025 [id number] Increase fluids and follow up for worsening [email or web address] Not available 02/24/2025 13:00:55 Reason for Referral None Reported. Problems Name Problem SNOMED Code Status Onset Date Resolution Date Notes Provider Name and Address Organization Details Recorded Time Fatigue 46819308 Completed 202208/18/2024 SOFIE ac, [facility] 5 10:01:58 Acute sinusitis 24207002 Completed 202208/18/20[facility] 10:01:58 Acute maxillary sinusitis 73232747 Completed 202208/18/2024 SOFIE PIERRE [facility] 5 10:01:58 [id number] Completed 202303/19/2024 ELI JOSEPHH WILLIE [facility] 4 13:07:30 Problem Notes None recorded. Procedures Surgical History Date Name Laterality Status Provider Name and Address Organization Details Recorded Time Cerumen Removal-Irri gation completed ROBBIE CONNER [address] [place] [address], [phone], [facility] 06/30/2023 14:24:13 Imaging Results None recorded. [...] oral route with meal(s) for 5 days. 03/08 completed Not Available Not Available Not Available doxycycline hyclate 100 mg capsule Take 1 capsule twice a day by oral route with meal(s) for 10 days. 03/13 completed Not Available Not Available Not Available Tubersol 5 tub. unit/0.1 mL intradermal injection solution Inject 0.5 units by intraderm al route. 2024 active Not Available Not Available Not Avai lable terconazole 0.8 % vaginal cream Insert 1 applicato rful every day by vaginal route for 7 days. 02/044 completed Not Available Not Available Not Available metronidazo le 500 mg tablet TAKE ONE TABLET BY MOUTH TWICE DAILY 08/29 completed Not Available Not Available Not Available tramadol 50 mg tablet TAKE 1 TABLET BY MOUTH EVERY 8 HOURS NEEDED FOR PAIN active Not Available Not Available No t Available amoxicillin 500 mg tablet Take 1 [...] and Address Organization Details Last Updated DateTime 160.02 cm 24.8 kg/m2 77 % 06268.9 3 g 97.8 [degF] 97 % 97 % 87 /min 114/70 mm[Hg] SOFIE PIERRE [facility] 5 10:01:17 Date Recorded Body height Body mass index (BMI) [Percentile] Per age and sex Body mass index (BMI) Body weight Body temperature Oxygen saturation Oxygen saturation in Arterial blood by Pulse oximetry Heart rate Systolic And Diastolic Provider Name and Address Organization Details Last Updated DateTime 5 160.02 cm 74 % 24.4 kg/m2 18982.7 5 g 97.5 [degF] 98 % 98 % 74 /min 115/70 mm[Hg] ELI TAPIA [facility] 5 16:17:33 Date Recorded Body height Body mass index (BMI) Body mass index (BMI) [Percentile] Per age and sex Body weight Oxygen saturation Oxygen saturation in Arterial blood by Pulse oximetry Heart rate Systolic And Diastolic Provider Name and Address Organization Details Last Updated DateTime 5 160.02 cm 23 kg/m2 63 % 47937.0 1 g 99 % 99 % 78 /min 118/74 mm[Hg] Angelica Daniels [facility] 5 12:20:24 Social History Question Answer Notes LastModified by [email or web address] Details LastModified Time Tobacco Smoking Status Never Smoker ELI TAPIA [facility] 06/28/2023 16:26:14 What Was The Date Of Your Most Recent Tobacco Screening? 02/24/2025 [email or web address] Information not available 02/24/2025 Sex: Unknown Functional Status Question Answer Note LastModified by [email or web address] Details LastModified Time Do you use any illicit or recreational drugs? No [email or web address] Information not available 09/27/2023 What is your level of alcohol consumption? None Information not available 09/27/2023 Mental Status None recorded. Family History Relationship Description Onset Age of this Age Resolved Age Notes LastModified by Organization Details LastModified Time Mother Malignant neoplasm of cervix uteri [email or web address] Not available 0 06/28/2023 16:26:09 Medical History Condition Response Coronary Artery Disease N Other N Gout N Kidney Stones N Blood Diseases N Hyperthyroidism N Breast Cancer N Blood Transfusion N Hypothyroidism N Lung Disease N COPD N Depression N Defects or Inherited Disease N Developmental [...] meningococcal B, OMV 3 completed ELI ac [facility] L[facility]ikaCShanika 06/28/2023 16:22:15 HPV9 3 completed [facility] 06/28/2023 16:22:15 HPV9 8 completed ELI ac [facility], JoséLShanikaCShanika 06/28/2023 16:22:15 IPV 5 completed ELI ac [facility] L.LShanikaCShanika 06/28/2023 16:22:16 MMR 9 completed ELI ac [facility], JoséLShanikaCShanika 06/28/2023 16:22:16 MMRV 6 completed ELI ac [facility], JoséLShanikaCShanika 06/28/2023 16:22:16 meningococcal conjugate quadrivalent, MenACWY-TT (MCV4) 3 completed ELI TAPIA [facility], Lauri.LShanikaCShanika 06/28/2023 16:22:16 pneumococcal conjugate PCV 7 7 completed ELI PAUL TAPIA [facility], DarianCShanika 06/28/2023 16:22:16 pneumococcal conjugate PCV 7 5 completed ELI PAUL TAPIA [facility], Lauri.LShanikaCShanika 06/28/2023 16:22:16 pneumococcal conjugate PCV 7 5 completed ELI PAUL TAPIA [facility], JoséLShanikaCShanika 06/28/2023 16:22:16 pneumococcal conjugate PCV 7 5 completed ELI PAUL TAPIA [facility], DarianCShanika 06/28/2023 16:22:16 DTaP-IPV 9 completed ELI PAUL TAPIA [facility], Lauri.LShanikaCShanika 06/28/2023 16:22:16 Tdap 8 completed ELI PAUL TAPIA [facility], Lauri.LShanikaCShanika 06/28/2023 16:22:16 varicella 9 completed ELI TAPIA [facility], Lauri.LShanikaCShanika 06/28/2023 16:22:16 Influenza, split virus, trivalent, preservative 3 completed ELI TAPIA [facility] L.LShanikaCShanika 06/28/2023 16:22:16 Hep B, adolescent or pediatric 5 completed ELI PAUL TAPIA [facility], L.LShanikaCShanika 06/28/2023 16:22:16 Hep A, ped/adol, 2 dose 7 completed ELI PAUL TAPIA [facility], JoséLShanikaCShanika 06/28/2023 16:22:16 Hep A, ped/adol, 2 dose 9 completed ELI TAPIA [facility] 06/28/2023 16:22:16 Hib (PRP-OMP) 7 completed ELI TAPIA [facility] 06/28/2023 16:22:16 Hib (PRP-OMP) 5 completed ELI PAUL TAPIA [facility] 06/28/2023 16:22:16 Hib (PRP-OMP) 5 completed ELI PAUL TAPIA [facility] 06/28/2023 16:22:16 Hib (PRP-OMP) 5 completed ELI PAUL TAPIA [facility] 06/28/2023 16:22:16 meningococcal MCV4P 8 completed ELI PAUL TAPIA [facility] 06/28/2023 16:22:16 DTaP 7 completed ELI PAUL TAPIA [facility] 06/28/2023 16:22:16 DTaP 5 completed ELI PAUL TAPIA [facility] 06/28/2023 16:22:16 DTaP-Hep B-IPV 5 completed ELI PAUL TAPIA [facility] 06/28/2023 16:22:16 DTaP-Hep B-IPV 5 completed ELI PAUL TAPIA [facility] 06/28/2023 16:22:16 Influenza, split virus, quadrivalent, PF 3 completed ELI PAUL TAPIA [facility] 07/30/2023 11:07:04 Tdap 4 completed Not Available [facility] 02/24/2025 12:15:35 Past Encounters Encounter ID Performer Location Encounter Start Date Encounter Closed Date Diagnosis/Indication Diagnosis SNOMED-CT Code Diagnosis ICD10 Code Diagnosis IMO Codes Diagnosis Note [id number] Elise Barton MD [facility] [address] [place] [id number] 5 10/30/2022 12:26:42 12/05/2022 11:30:00 Contraception care management 277897270 Z30.9 [id number] JAYME THURSTON NP [facility] [address] [place] [address] [id number] 5 12/26/2022 15:17:46 12/26/2022 17:43:38 Dysuria 42676161 R30.0 Acute urin chhaya tract infection 809209363 N39.0 Discussed to take antibiotic as prescribed [...] concernsPa tient verbalized understand ing of plan. [id number] Víctor Alatorre MD [facility] [address] [place] [address] [id number] 5 01/05/2023 16:50:02 01/11/2023 14:47:51 Fatigue 28807695 R53.83 No specific exam findings that would guide direction for evaluation . The patient does work long days and this may correlate with fatigue. However we will check labs today. Family junaid nning education 759651399 Z30.02 Patient does not need hormones checked as she is a young 17-year-ol d female. Patient was reassured. Did discuss taking vitamins if coming off Depo and trying to get . [id number] Víctor Alatorre MD [facility] [address] [place] [address] [id number] 5 05/10/2023 09:33:30 05/10/2023 10:27:46 Acute maxillary sinusitis 80692774 J01.00 Likely bacterial sinusitis based on exam and history. discussed supportive care including OTC meds and sinus rinses. we will start abx. [id number] Elise Barton MD [facility] [address] [place] [address] [id number] 5 06/28/2023 16:17:10 06/30/2023 18:38:31 test positive 564722333 Z32.01 [facility]. 06/28/23 Gestation period, 6 weeks 84447011 Z3A.01 we will need a first trimester u/s to determine accurate dating. [id number] ROBBIE CONNER [facility]) [address] [place] [address] [id number] 5 06/30/2023 12:53:40 06/30/2023 14:28:50 Fever 834334711 R50.9 Acute supp urative otitis media without spontaneous rupture of ear drum 93262946 H66.279 [id number] Elise Barton MD [facility] [address] [place] [address] [id number] 5 07/18/2023 16:08:29 07/18/2023 16:44:56 [id number] Elise Barton MD [facility] [address] [place] [address] [id number] 5 07/30/2023 10:54:35 07/30/2023 16:58:18 Gestation period, 14 weeks 28462960 Z3A.14 Normal pre gnancy in primigravida 3634024311 24274 Z34.02 48352654 Z33.1 [id number] Elise Barton MD [facility] [address] [place] [address] [id number] 5 08/30/2023 10:21:13 08/30/2023 10:53:01 Gestation period, 15 weeks 9725892 Z3A.15 Normal pre gnancy in primigravida 3164698632 75270 Z34.02 [id number] Elise Barton MD [facility]) [address] [place] [address] [id number] 5 09/27/2023 09:54:50 09/27/2023 10:59:03 Gestation period, 19 weeks 75048729 Z3A.19 veronique u/s scheduled next week Normal pre gnancy in primigravida 7939133588 94267 Z34.02 Nausea and vomiting 1693 2000 R11.2 [id number] Elise Barton MD [facility] [address] [place] [address] [id number] 5 10/04/2023 09:43:42 10/08/2023 17:45:40 [id number] Elise Barton MD [facility] [address] [place] [address] [id number] 5 10/29/2023 13:39:50 10/29/2023 14:17:00 Gestation period, 23 weeks 24960247 Z3A.23 Normal pre gnancy in primigravida 5605732585 33625 Z34.02 ultr asound scan abnormal 6777075919 9109 O28.3 renal pelvices, has f/u u/s on 11/15/23. [id number] Elise Barton MD [facility] [address] [place] [address] [id number] 5 11/05/2023 16:13:41 11/06/2023 13:47:13 [id number] Elise Barton MD [facility]) [address] [place] [address] [id number] 5 11/26/2023 09:41:58 11/27/2023 10:20:53 [id number] Z33.1 [id number] Elise Barton MD [facility] [address] [place] [address] [id number] 5 11/26/2023 10:37:40 11/26/2023 12:06:47 Gestation period, 27 weeks 21969658 Z3A.27 Normal pre gnancy in primigravida 9631509108 04638 Z34.02 [id number] Elise Barton MD [facility] [address] [place] [address] [id number] 5 12/17/2023 11:40:52 12/17/2023 12:15:14 Gestation period, 30 weeks 79700997 Z3A.30 Normal pre gnancy in primigravida 3177855085 72414 Z34.02 Venereal d isease screening 768638751 Z11.3 ultr asound scan abnormal 1082956025 9109 O28.3 renal pelvices.s aw MFM and u/s wnl there. 12/17/23. [id number] Elise Barton MD [facility] [address] [place] [address] [id number] 5 12/31/2023 11:41:26 12/31/2023 12:33:15 Gestation period, 32 weeks 5252098 Z3A.32 Normal pre gnancy in primigravida 6513323699 99054 Z34.02 Vaginitis 50828361 N76.0 [id number] Elise Barton MD [facility] [address] [place] [address] [id number] 5 01/14/2024 13:54:56 01/14/2024 14:57:22 Gestation period, 34 weeks 25824109 Z3A.34 Normal pre gnancy in primigravida 7585898041 25604 Z34.02 Vaginitis 63133839 N76.0 Candidal vulvovaginitis 66477538 B37.31 [id number] Elise Barton MD [facility] [address] [place] [address] [id number] 5 01/21/2024 14:13:45 01/21/2024 16:01:29 Gestation period, 35 weeks 46111376 Z3A.35 Normal pre gnancy in primigravida 2837401011 35949 Z34.03 [id number] Elise Barton MD [facility] [address] [place] [address] [id number] 5 01/29/2024 12:09:26 01/29/2024 13:25:28 Gestation period, 37 weeks 04089280 Z3A.37 Normal pre gnancy in primigravida 2763759026 00501 Z34.03 [id number] Elise Barton MD [facility] [address] [place] [address] [id number] 5 02/05/2024 12:04:18 02/05/2024 12:35:47 Gestation period, 38 weeks 70012633 Z3A.38 Normal pre gnancy in primigravida 5646131931 35261 Z34.03 [id number] Elise Barton MD [facility] [address] [place] [address] [id number] 5 02/12/2024 11:42:11 02/12/2024 12:13:28 Gestation period, 39 weeks 24876583 Z3A.39 Normal pre gnancy in primigravida 8000231058 92638 Z34.03 [id number] Elise Barton MD [facility] [address] [place] [address] [id number] 5 03/19/2024 12:35:57 03/24/2024 20:44:33 state 82051148 Z39.2 Contracept ion care management 906209491 Z30.9 [id number] Elise Barton MD [facility] [address] [place] [address] [id number] 5 06/18/2024 13:05:19 06/18/2024 16:03:17 Contraception care management 570661423 Z30.9 [id number] Elise Barton MD [facility] [address] [place] [address] [id number] 5 08/18/2024 09:57:45 08/18/2024 15:43:35 Medication side effects present 082534874 T50.905A light bleeding with Depo. reassuranc e. expectant management . [id number] Elise Barton MD [facility] [address] [place] [address] [id number] 5 09/08/2024 15:07:07 09/09/2024 14:34:53 [id number] Elise Barton MD [facility] [address] [place] [address] [id number] 5 10/30/2024 15:50:44 10/31/2024 13:15:08 Requires Bacillus Calmette-Yonatan vaccination 187593413 Z23 3368822 pt will return Sat for TB to be read. 10/30/24 Physical examination 588 0005 Z00.00 [id number] wnl 10/30/24 [id number] ROBBIE CONNER [facility] [address] [place] [address] 11/01/2024 13:30:38 11/03/2024 14:53:29 [id number] FABIAN MCGUIRE APRN [facility] [address] [place] [address] 02/24/2025 12:13:46 02/24/2025 13:05:56 Animal bite of wrist 716569921 S60.861A W57.XXXA [id number] Health Concerns Section Related Observation LastModified by Organization Detai ls LastModified Time None Recorded Concern Status LastModified by Organization Details LastModified Time None Recorded Advance Directives Directive None Recorded Payers Insurance Date Sequence Insurance Name Policy Number Policy Ralph Covered Member ID Ralph Member ID Guarantor Name 02/24/2025 [facility] (MEDICAID HMO) Mc Lilly [id number] Mc Lilly 03/16/2025 2 [facility] (EPO) Mc Lilly [id number] Mc Lilly 07/05/2023 1 *SELF PAY* Eli Lilly 02/24/2025 [place] Mc Lilly [id number] Mc Lilly 03/16/2025 [place] [facility] Mc Lilly [id number] Mc Lilly 02/24/2025 1 [facility] CHRISTINA Lilly [id number] Mc Lilly 03/02/2025 1 [facility] CHRISTINA Lilly [id number] Mc Lilly 02/24/2025 1 [facility] (MEDICAID HMO) Mc Lilly [id number] Mc Lilly Notes Date Note Type Note Provider Name and Address Organization Details Recorded Time 08/18/2024 text/html Abnormal BleedingReported by PatientHPIFor onset/timing, patient reportspresent cycle. For associated symptoms, patient reportsno pelvic pain,no abdominal pain, andno fatigue. pt states it is NOT heavyshe changes a liner every few hours but it is not saturated. Elise Barton MD [address] [place] [address], [phone], [facility] 08/18/2024 10:29:22 10/30/2024 text/html ROS as noted in the HPI no problems or concerns Elise Barton MD [address] [place] [address], [phone], [facility] 10/30/2024 16:47:19 02/24/2025 text/html walk inx4 days bite to right wrist, swelling, redness, drained, painful, itching FABIAN MCGUIRE APRN [address] [place] [address], [phone], [facility] 02/24/2025 13:01:10 OBGyn Episode Ob Episode Information Episode Created Date Number of Fetuses Patient Bloodtype Patient rh Status Prepregnancy Weight lbs Domestic Partner Domestic Partner Phone Father Name Disaster Recovery Specialist Status 06/28/19 24 1 O Positive Collins [...] Weight in lbs Pre/Post Dialysis Refused Weight 125.213388899391 BP Diastolic BP Location Tested BP Systolic BP Type 58 100 Fetus Heart Rate Present Fetus Movement Comments RHINA likely 02/19/24 by [email or web address] u [facility]. Flowsheet Date 06/30/2023 Cornell Score Blood Edema Fundus Height Fundus Units Glucose Ketones Leukocytes Nitrite Labor Signs Protein Cervic Dilation Cervic Effacement Cervic Station Type Weight in lbs Pre/Post Dialysis Refused With clothes 130.588102506430 BP Diastolic BP Location Tested BP Systolic [...] Weight in lbs Pre/Post Dialysis Refused Weight 126.172619760418 BP Diastolic BP Location Tested BP Systolic BP Type 60 114 Fetus Heart Rate Present A 165 Fetus Movement Comments Flowsheet Date 08/30/2023 Cornell Score Blood Edema Fundus Height Fundus Units Glucose Ketones Leukocytes Nitrite Labor Signs Protein Cervic Dilation Cervic Effacement Cervic Station 15 none trace Negative neg Type Weight in lbs Pre/Post Dialysis Refused With clothes 131.406156201412 BP Diastolic BP Location Tested BP Systolic [...] in lbs Pre/Post Dialysis Refused With clothes 137.940290219797 BP Diastolic BP Location Tested BP Systolic [...] in lbs Pre/Post Dialysis Refused With clothes 144.614436733357 BP Diastolic BP Location Tested BP Systolic [...] Weight in lbs Pre/Post Dialysis Refused Weight 149.333326164897 BP Diastolic BP Location Tested BP Systolic [...] in lbs Pre/Post Dialysis Refused With clothes 149.245210294104 BP Diastolic BP Location Tested BP Systolic [...] in lbs Pre/Post Dialysis Refused With clothes 151.469951526909 BP Diastolic BP Location Tested BP Systolic [...] in lbs Pre/Post Dialysis Refused With clothes 152.781397266987 BP Diastolic BP Location Tested BP Systolic BP Type 72 R arm 120 sitting Fetus Heart Rate Present Fetus Movement Comments Flowsheet Date 01/21/2024 Cornell Score Blood Edema Fundus Height Fundus Units Glucose Ketones Leukocytes Nitrite Labor Signs Protein Cervic Dilation Cervic Effacement Cervic Station 37 cm none 1+ Negative neg Type Weight in lbs Pre/Post Dialysis Refused With clothes 154.40478415199 BP Diastolic BP Location Tested BP Systolic [...] in lbs Pre/Post Dialysis Refused With clothes 155.84052480276 BP Diastolic BP Location Tested BP Systolic [...] Weight in lbs Pre/Post Dialysis Refused Weight 158.273976415450 BP Diastolic BP Location Tested BP Systolic BP Type 63 100 Fetus Heart Rate Present A 130 Fetus Movement A Yes Comments Flowsheet Date 02/12/2024 Cornell Score Blood Edema Fundus Height Fundus Units Glucose Ketones Leukocytes Nitrite Labor Signs Protein Cervic Dilation Cervic Effacement Cervic Station 40 cm none 2+ trace 1cm 50% -4 Type Weight in lbs Pre/Post Dialysis Refused 158.579024295200 BP Diastolic BP Location Tested BP Systolic BP Type 70 108 Fetus Heart Rate Present A 145 Fetus Movement A Yes Comments Flowsheet Date 03/19/2024 Cornell Score Blood Edema Fundus Height Fundus Units Glucose Ketones Leukocytes Nitrite Labor Signs Protein Cervic Dilation Cervic Effacement Cervic Station Type Weight in lbs Pre/Post Dialysis Refused Weight 137.659342482727 BP Diastolic BP Location Tested BP Systolic BP Type 62 103 Fetus Heart Rate Present Fetus Movement Comments Menstrual History Last Menstrual Date Menses Monthly On Bcp Conception Prior Menses Frequency Hcg Plus Date Menarche Onset Age 1104/18/2023 false Genetic Screening And Infection History Question Response Note Patient's Age Will Be 35 Years Or Older At Estim ated Date of Delivery false Thalassemia (Luxembourgish, Samoan, Mediterranean, Or Background): MCV < 80 false Neural Tube Defect (Meningomyelocele, Spina Bifi da, Or Anencephaly) false Congenital Heart Defect false Down Syndrome false Luis Fernando-Sachs (eg, Pentecostalism, Cajun, Maldivian-Bartholomew) f alse Petty Disease false Sickle Cell Disease Or Trait () false Hemophilia Or Other Blood Disorders false Muscular Dystrophy false Cystic Fibrosis false [place]'s Chorea false Intellectual Disability/Autism false If Yes, [...]
--- NOTE | 2025-04-03 08:53 | XRR_ITS ---
PROCEDURE INFORMATION: Exam: XR Chest Exam date and time: 04/03/2025 9:18 AM Age: 19 years old Clinical indication: Pain; Chest pressure TECHNIQUE: Imaging protocol: Radiologic exam of the chest. Views: 1 view. COMPARISON: CR XR chest 2V* [id number] 06/13/2021 1:47 PM FINDINGS: Lungs: Unremarkable. No consolidation. Pleural spaces: Unremarkable. No pleural effusion. No pneumothorax. Heart/Mediastinum: Unremarkable. No cardiomegaly. Bones/joints: Unremarkable. XR/XR chest 1V portable [id number] IMPRESSION: No acute findings.
--- NOTE | 2025-04-03 08:54 | ECG_ITS ---
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 Measurements Intervals [place] Rate: 93 P: 29 AK: 152 QRS: 58 QRSD: 89 T: 30 QT: 334 QTc: 417 Interpretive Statements SINUS RHYTHM POSSIBLE RIGHT VENTRICULAR CONDUCTION DELAY [RSR (QR) IN V1/V2] Compared to ECG 02/07/2019 10:51:38 Sinus bradycardia no longer present Electronically Signed On 04-04-2025 13:00:07 [employer] by Rony Schultz M.D. [email or web address] [id number]
[2025-04-03 09:00] LABS: Hematocrit 37.0 % (36-47); Hemoglobin 12.30 g/dL (12.4-14.8); Mean Corpuscular HGB Conc 33.2 g/dL (30-55); Mean Corpuscular Hemoglobin 29.6 pg (27-33); Mean Corpuscular Volume 88.9 fl (85-98); Nucleated Red Blood Cells % 0 %; Platelet Count 195 10^3/cmm (157-399); Red Blood Count 4.16 10^6/uL (3.85-5.65); White Blood Count 4.15 10^3/uL (4.5-13.0)
[2025-04-03 09:09] LABS: Alanine Aminotransferase 25 U/L (0-33); Albumin Level 4.5 g/dL (3.5-5.2); Alkaline Phosphatase 73 U/L (35-105); Anion Gap 16.6 (5-19); Aspartate Amino Transferase 24 U/L (0-32); Blood Urea Nitrogen 9 mg/dL (6-20); Calcium 9.1 mg/dL (8.5-10.5); Carbon Dioxide 22 mmol/L (22-29); Chloride 100 mmol/L (98-107); Creatinine Clr Calc Pharmacy 163.4176; Globulin 3.3 g/dL (1.3-4.6); Glucose 91 mg/dL (65-115); Magnesium 1.9 mg/dL (1.7-2.3); Osmolality Calculated 278 mOsm/kg (285-295); Potassium 3.6 mmol/L (3.5-5.1); Sodium 135 mmol/L (136-145); Total Protein 7.8 g/dL (6.6-8.7)
[2025-04-03] MEDS: metoclopramide 5 mg/mL SDV 2 mL 10 MG IVP (09:17)
[2025-04-03] MEDS: diphenhydrAMINE 50 mg/mL SDV 1mL 25 MG IVP (09:17)
[2025-04-03 09:31] VITALS: BP 121/63; RESP 14; O2SAT 97
--- NOTE | 2025-04-03 09:37 | W.ED.GENADLT ---
HPI - General Adult General: Chief complaint: General Medical Stated complaint: migraines, chest pressure Time Seen by Provider: 04/03/25 08:20 History of Present Illness: 19-year-old female generally healthy presenting to the emergency department with approximately 1 week history of headache, gradual onset intermittent, associated with chest pressure and mild cough, associated with upper back and neck pain, no falls or trauma, no neck stiffness, no sore throat or runny nose, no fevers or chills, no vision or hearing changes, no weakness numbness or tingling to the face arms legs or difficulty with ambulation, patient also reports some clear liquid from her vagina without significant pelvic pain itching or burning, no hematuria dysuria urgency or frequency of urination. Related Data Previous Rx's ?Medication ?Instructions ?Recorded ibuprofen 600 mg tablet 600 mg PO Q6H PRN pain #30 tabs 04/03/25 metronidazole 500 mg tablet 500 mg PO BID 7 days #14 tabs 04/03/25 Allergies Allergy/AdvReac Type Severity Reaction Status Date / Time No Known Allergies Allergy Verified 02/18/24 11:39 [facility] ED PFSH: Social History Smoking and tobacco/nicotine status: never used tobacco/nicotine Second hand smoke exposure: No Alcohol intake: never Substance/Drug Use: never Physical Exam Narrative: EXAM NARRATIVE: Gen: A&Ox4, no acute distress, nontoxic appearing HEENT: Normocephalic, atraumatic, no scleral icterus, external ears normal, moist mucous membranes Neck: Supple, full range of motion, no observable masses, no meningeal signs, negative Kernig/Brudzinski, moving neck in all directions without discomfort Lungs: No Respiratory distress, Lungs clear to auscultation bilaterally no rales, rhonchi, wheezing CV: Regular rate and rhythm, no murmur, no pitting edema to lower extremities bilaterally Abdomen: Soft, nondistended, nontender to palpation MSK: No joint swelling, FROM all 4 extremities Skin: No rashes, petechiae, lesions. Normal color per patient. Neuro: Alert and oriented, no slurred speech, sensation and strength grossly intact all 4 extremities, ambulates with steady gait, negative Romberg, normal finger-nose testing bilaterally Psych: Appropriate for situation. Course Reevaluation(s): Reevaluation #1: Patient reassessed at this time, headache is resolved, appears well, workup without any dangerous abnormalities found, chest x-ray negative, EKG normal, patient does have bacteria in wet prep consistent with possible bacterial vaginosis will treat with oral Flagyl, supportive care for pain related complaints, return precautions discussed prior to discharge. Time: 09:51 Vital Signs: Vital signs: Vital Signs Temperature 98.8 F 04/03/25 08:24 Pulse Rate 97 04/03/25 08:24 Respiratory Rate 14 04/03/25 09:31 Blood Pressure 121/63 04/03/25 09:31 Pulse Oximetry 97 04/03/25 09:31 Oxygen Delivery Me thod Room Air 04/03/25 08:24 [facility] - General Adult Medical Decision Making 19-year-old female presenting emergency department with 1 week history of intermittent waxing and waning headache as well as chest pressure and mild cough, upper back and neck pain, no focal neurologic deficits on exam, stable vitals, well-appearing clinically, no pelvic pain but has endorsed some mild vaginal leakage/clear discharge that does not have a foul odor, plan for labs, chest x-ray, trial of headache cocktail with reassessment for disposition. Lab Data Workup showing minimal anemia and leukopenia without neutropenia, not clinically relevant, borderline hyponatremia, normal LFTs and normal creatinine, urinalysis without evidence of UTI wet prep with many bacteria 04/03/25 08:34 04/03/25 08:34 Radiology Impressions Chest X-Ray 04/03/25 08:53 IMPRESSION: No acute findings. Laboratory Results WBC 4.15 10^3/uL (4.5-13.0) L 04/03/25 08:34 RBC 4.16 10^6/uL (3.85-5.65) 04/03/25 08:34 Hgb 12.30 g/dL (12.4-14.8) L 04/03/25 08:34 Hct 37.0 % (36-47) 04/03/25 08:34 MCV 88.9 fl (85-98) 04/03/25 08:34 MCH 29.6 pg (27-33) 04/03/25 08:34 MCHC 33.2 g/dL (30-55) 04/03/25 08:34 RDW 13.1 % (12.1-15.1) 04/03/25 08:34 Plt Count 195 10^3/cmm (157-399) 04/03/25 08:34 MPV 9.6 fL (7.4-10.4) 04/03/25 08:34 Neut % (Auto) 51.2 % 04/03/25 08:34 Lymph % (Auto) 33.5 % 04/03/25 08:34 [place] % (Auto) 14.9 % 04/03/25 08:34 Eos % (Auto) 0.0 % 04/03/25 08:34 Baso % (Auto) 0.2 % 04/03/25 08:34 Neut # (Auto) 2.12 10^3/uL (1.8-8.0) 04/03/25 08:34 Lymph # (Auto) 1.4 10^3/uL (1.5-6.5) L 04/03/25 08:34 [place] # (Auto) 0.6 10^3/uL (0.2-0.9) 04/03/25 08:34 Eos # (Auto) 0.0 10^3/uL (0.0-0.8) 04/03/25 08:34 Baso # (Auto) 0.0 10^3/uL (0.0-0.1) 04/03/25 08:34 Nucleated RBC % (auto) 0 % 04/03/25 08:34 Nucleated RBCs # 0.0 /100WBC 04/03/25 08:34 Sodium 135 mmol/L (136-145) L 04/03/25 08:34 Potassium 3.6 mmol/L (3.5-5.1) 04/03/25 08:34 Chloride 100 mmol/L (98-107) 04/03/25 08:34 Carbon Dioxide 22 mmol/L (22-29) 04/03/25 08:34 Anion Gap 16.6 (5-19) 04/03/25 08:34 BUN 9 mg/dL (6-20) 04/03/25 08:34 Creatinine 0.5 mg/dL (0.5-0.9) 04/03/25 08:34 GFR Calculation 157.3 mL/min (90-130) H 04/03/25 08:34 Glucose 91 mg/dL (65-115) 04/03/25 08:34 Calculated Osmolality 278 mOsm/kg (285-295) L 04/03/25 08:34 Calcium 9.1 mg/dL (8.5-10.5) 04/03/25 08:34 Magnesium 1.9 mg/dL (1.7-2.3) 04/03/25 08:34 Total Bilirubin 0.2 mg/dL (0.15-1.2) 04/03/25 08:34 AST 24 U/L (0-32) 04/03/25 08:34 ALT 25 U/L (0-33) 04/03/25 08:34 Alkaline Phosphatase 73 U/L (35-105) 04/03/25 08:34 Total Protein 7.8 g/dL (6.6-8.7) 04/03/25 08:34 Albumin 4.5 g/dL (3.5-5.2) 04/03/25 08:34 Globulin 3.3 g/dL (1.3-4.6) 04/03/25 08:34 HCG, Qual Negative (Negative) 04/03/25 09:15 Urine Color Yellow (Yellow) 04/03/25 09:15 Urine Appearance Clear (CLEAR) 04/03/25 09:15 Urine pH 6.5 (5-7) 04/03/25 09:15 Ur Specific [place] 1.029 (1.005-1.030) 04/03/25 09:15 Urine Protein 2+ (Negative) A 04/03/25 09:15 Urine Glucose (UA) Negative (Normal) 04/03/25 09:15 Urine Ketones Trace (Negative) 04/03/25 09:15 Urine Blood Trace (Negative) A 04/03/25 09:15 Urine Nitrate Negative (Negative) 04/03/25 09:15 Urine Bilirubin Negative (Negative) 04/03/25 09:15 Urine Urobilinogen 1.0 mg/dL (Negative) 04/03/25 09:15 Ur Leukocyte Esterase Trace (Negative) A 04/03/25 09:15 Urine RBC 6-10 /hpf (0-2) 04/03/25 09:15 Urine WBC 11-20 /hpf (0-5) H 04/03/25 09:15 Ur Squamous Epith Cells 0-5 /hpf (0-5) 04/03/25 09:15 Amorphous Sediment Not Reportable 04/03/25 09:15 Urine Bacteria Trace /hpf (NONE) 04/03/25 09:15 Hyaline Casts 0-4 /lpf H 04/03/25 09:15 All radiology interpretation(s) finalized by discharge ED provider radiology interpretation(s): Chest x-ray negative for acute bacterial consolidation or pneumothorax EKG Data EKG 1: I personally reviewed and interpreted this EKG as follows: EKG interpretation date: 04/03/25 EKG interpretation time: 08:29 Interpretation: EKG showing sinus rhythm at 93 bpm, no STEMI, no ectopy, QTc 385 ms, normal axis Computer generated interpretation: Chest X-Ray 04/03/25 08:53 IMPRESSION: No acute findings. Discharge Plan Discharge Patient Disposition: Home Clinical Impression: Bacterial vaginosis Headache Qualifiers: Headache type: unspecified Headache chronicity pattern: episodic headache Intractability: not intractable Qualified Code(s): R51.9 - Headache, unspecified Condition: Stable Prescriptions: New metronidazole 500 mg tablet 500 mg PO BID 7 Days Qty: 14 0RF ibuprofen 600 mg tablet 600 mg PO Q6H PRN (Reason: pain) Qty: 30 0RF Discharge Orders: Discharge ED (Routine); Ordered 04/03/25 Ordered By: León Thapa Referrals: [facility], [Primary Care Provider] Patient Instructions: Patient Portal & Hay Instructions, Acute Headache (DC), Bacterial Vaginosis (ED) Print Language: [place]ian Coding Level of Care Code ED Inspector [place]reath for Elvia Pineda
[2025-04-03 09:40] LABS: Glucose Urine UA Negative (Normal); Nitrate Urine Negative (Negative); Specific Gravity, Urine 1.029 (1.005-1.030)
[2025-04-03 09:42] LABS: HCG Qualitative Urine. Negative (Negative)
[2025-04-03 10:08] VITALS: BP 111/67; PULSE 65; O2SAT 97
[2025-04-03 10:11] LABS: Respiratory Syncytial Virus Ce NEGATIVE (Negative); SARS-CoV-2 PCR NEGATIVE (Negative)
[2025-04-03 11:08] LABS: Neisseria Gonorrhea NOT DETECTED (Negative)
== END 2025-04-03 10:10 | disposition home or self-care (01) ==
PROVIDERS: Emergency Provider Student in an Organized Health Care Education/Training Program
DX: N76.0 Acute vaginitis (principal); R51.9 Headache, unspecified
CPT/HCPCS: 36415; 71045; 80053; 81001; 81025; 83735; 85025; 87086; 87210; 87491; 87591; 87637; 93005; 96361; 96374; 96375; 99285; J1200; J1885; J2765; J7030